=== PATIENT | male | born 1980 | race Caucasian/White ===

== ENCOUNTER 2022-12-29 12:17 | Outpatient (OUT) | payer OTHER, SELFPAY ==
--- NOTE | 2022-12-29 12:25 | MR_ITS ---
[facility] [id number] Patient Name: EDUARDO PHAM MRN: [id number] date: 1980 Sex: M Assigned Patient Location: MRI Current Patient Location: MRI Accession/Order Number: [id number] Exam Date: 12/29/2022 12:45 Report Date: 12/29/2022 13:50 At the request of: GLENNA MCCALL Procedure: MR shoulder LT wo con MR shoulder LT wo con, 12/29/2022 12:45 PM EDT INDICATION: Injury Of The Left Rotator Cuff S46.002D COMPARISON: There is no appropriate prior study for comparison. TECHNIQUE: Multiplanar and multisequential MR images of the left shoulder were obtained without contrast. FINDINGS: There are no significant hypertrophic degenerative changes of AC joint. There is no os acromiale. No Hill-Sachs is noted. No acute fracture or dislocation is noted. The quadrilateral space and supraspinous notch are unremarkable. The T2 prolongation within the insertional portions of supraspinatus may suggest tendinosis. 2 mm partial thickness partial width articular surface tear of supraspinatus is noted. The long head of biceps and infraspinatus and teres minor and subscapularis are unremarkable. No fatty muscle atrophy is noted. The labrum shows show mild degenerative changes superior posteriorly. There is trace intra articular joint effusion. Mild subacromial subdeltoid bursitis is noted. MR/MR shoulder LT wo con IMPRESSION: Low-grade partial articular surface tear of supraspinatus with mild insertional tendinosis. Mild subacromial subdeltoid bursitis. Electronically authenticated by: MELLISSA STORY Date: 12/29/2022 13:50
== END 2022-12-29 12:18 | disposition home or self-care (01) ==
LOC: MRI 12:19
PROVIDERS: PCP Family Medicine; Visit Provider Family Medicine
DX: S46.002D Unspecified injury of muscle(s) and tendon(s) of the rotator cuff of left shoulder, subsequent encounter (principal); M75.102 Unspecified rotator cuff tear or rupture of left shoulder, not specified as traumatic
CPT/HCPCS: 73221

== ENCOUNTER 2023-01-11 13:47 | Outpatient (RCR) | payer OTHER, SELFPAY | END 2023-02-28 07:47 | disposition home or self-care (01) | LOC: PT 13:47 | PROVIDERS: PCP Family Medicine; Visit Provider Orthopaedic Surgery | DX: M75.112 Incomplete rotator cuff tear or rupture of left shoulder, not specified as traumatic (principal) | CPT/HCPCS: 97110; 97161 ==

== ENCOUNTER 2023-03-01 09:52 | Outpatient (RCR) | payer OTHER, SELFPAY | END 2023-04-01 16:54 | disposition home or self-care (01) | LOC: PT 09:52 | PROVIDERS: PCP Family Medicine; Visit Provider Orthopaedic Surgery | DX: M75.112 Incomplete rotator cuff tear or rupture of left shoulder, not specified as traumatic (principal) | CPT/HCPCS: 97110 ==

== ENCOUNTER 2024-08-03 15:11 | Outpatient (OUT) | payer OTHER, SELFPAY ==
--- OUTSIDE RECORDS SUMMARY | 2024-08-02 15:20 | XMS_ITS | Encounter Summary ---
Author Organization [facility] Address [address] [place] [address] Care Team Providers Care Contact Worker Lithography Name Role Phone Miguel Angel Hernandez MD Primary Care Provider Reason for Visit * Reason Comments Back Pain Encounter Details Date Type Department Care Team (Late st Contact Info) Description 08/02/2024 3:20 PM EDT [facility] [address] [place] [address] Bertha Pappas, ANIMAL CARE WORKER [address] [place] [address] Cervical spondylosis (Primary Dx); Tobacco dependence Social History Tobacco Use Types Packs/Day Years Used Date Smoking Tobacco: Every Day Cigarettes 1 27.1 Started: 06/18/1997 Smokeless Tobacco: Never Alcohol Use Standard Drinks/Week Comments Yes 1 (1 standard drink = 0.6 oz pur e alcohol) Sex and Gender Information Value Date Recorded Sex Assigned at Not on file Legal Sex Male 8:23 PM EDT Gender Identity Not on file Sexual Orientation Not on file documented as of this encounter Last Filed Vital Signs Vital Sign Reading Time Taken Comments Blood Pressure 102/60 08/02/2024 3:16 PM EDT Pulse 61 08/02/2024 3:16 PM EDT Temperature 36.9 C (98.4 F) 08/02/2024 3:16 PM EDT Respiratory Rate 16 08/02/2024 3:16 PM EDT Oxygen Saturation 96% 08/02/2024 3:16 PM EDT Inhaled Oxygen Concentration - - Weight 62.1 kg (136 lb 12.8 oz) 08/02/2024 3:16 PM EDT Height - - Body Mass Index 20.8 01/05/2023 1:50 PM EST documented in this encounter Patient Instructions * Patient Instructions* Bertha Pappas NP - 08/02/2024 3:20 PM EDT Try Naproxen (anti inflammatory) twice a day with food Tizanidine (muscle relaxer) at bedtime for sleep-may make drowsy Stretching exercises If not better in 3 weeks call off and we will order PT Check xray documented in this encounter Progress Notes * Bertha Pappas NP - 08/02/2024 3:44 PM EDTAssociated Problem(s): Cervical spondylosis NSAID, MR, stretching exercises Ice Call office in 2-3 weeks if not better * Bertha Pappas NP - 08/02/2024 3:44 PM EDTAssociated Problem(s): Tobacco dependence The patient has been advised of the risks of continued smoking: stroke, [place], all forms of cancer, lung disease, and . Options for quitting smoking include: cold turkey, hypnosis, acupuncture, nicotine replacement meds(gum, lozenges, and patches), Buproprion, and Varenicline. At this time pt is encouraged to evaluate their goals for wanting to quit smoking, and reach out toprovider when ready to start this process * DENNYS TANNER - 08/02/2024 3:20 PM EDT Back and neck pain started a couples ago pt can not recall anything or an event happening that he can recall. Pt has taken otc IBU however does not help pt has tried thc pain cream from the dispensaries - it helped at times but states not really Pt states there is no past hx or trauma to the neck or the back Pt ran out of refills of the baclofin but also states it didn't really do anything either * Berthaleno Pappas, ANIMAL CARE WORKER - 08/02/2024 3:20 PM EDT Images from the original note were not included. Frnac Servin is a 44 y.o. male presents with chief complaint of Back Pain HPI: Cervical and upper thoracic pain as well as muscle spasm Sxs for a few months, dull pain all the time, occ sharp pain. 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, sits in front of computer Occ BRITT, no blurry/double vision, no Nt or weakness in arms, LHD Some stiffness to lower lumbar Tried: heat, ice, muscle rubs, and balcofen MR no help either Worse: not really , possibly posture Better: nothing No rashes, no joint pain and swelling Imaging; does not think so SUBJECTIVE: MEDICATIONS: Current Outpatient Medications Medication Instructions Baclofen 10 MG pack valACYclovir (VALTREX) 500 mg, Daily RT ALLERGIES: No Known Allergies REVIEW OF SYMPTOMS: Review of Systems Constitutional: Negative for activity change, appetite change and unexpected weight change. HENT: Negative for ear pain, nosebleeds, sneezing, trouble swallowing and voice change. Eyes: Negative for pain, discharge and visual disturbance. Respiratory: Negative for apnea, chest tightness and wheezing. Cardiovascular: Negative for leg swelling. Gastrointestinal: Negative for abdominal distention, blood in stool, constipation and diarrhea. Genitourinary: Negative for decreased urine volume, difficulty urinating, dysuria and hematuria. Musculoskeletal: Positive for back pain and neck pain. Skin: Negative for color change. Neurological: Negative for dizziness, tremors and seizures. Psychiatric/Behavioral: Negative for agitation, decreased concentration, hallucinations, self-injury and suicidal ideas. The patient is not nervous/anxious. Hematological: Negative for adenopathy. Does not bruise/bleed easily. Endocrine: Negative for cold intolerance, heat intolerance, polydipsia and polyuria. Allergic/Immunologic: Negative for environmental allergies and food allergies. PAST MEDICAL HISTORY Past Medical History: Diagnosis Date Rotator cuff syndrome August 2022 No past surgical history on file. family history includes Diabetes in his father. OBJECTIVE: Visit Vitals BP 102/60 (BP Location: Left arm, Patient Position: Sitting, BP Cuff Size: Adult long) Pulse 61 Temp 98.4 ??F (Temporal) Resp 16 Wt 136 lb 12.8 oz SpO2 96% BMI 20.80 kg/m?? Smoking Status Every Day BSA 1.73 m?? Physical Exam Vitals and nursing note reviewed. Constitutional: Appearance: Normal appearance. He is not ill-appearing. HENT: Head: Normocephalic. Right Ear: Tympanic membrane, ear canal and external ear normal. Left Ear: Tympanic membrane, ear canal and external ear normal. Nose: Nose normal. No congestion or rhinorrhea. Mouth/Throat: Mouth: Mucous membranes are moist. Pharynx: Oropharynx is clear. Eyes: Extraocular Movements: Extraocular movements intact. Conjunctiva/sclera: Conjunctivae normal. Neck: Vascular: No carotid bruit. Cardiovascular: Rate and Rhythm: Normal rate and regular rhythm. Pulses: Normal pulses. Heart sounds: Normal heart sounds. Pulmonary: Effort: Pulmonary effort is normal. Breath sounds: Normal breath sounds. No wheezing or rhonchi. Abdominal: General: Bowel sounds are normal. There is no distension. Palpations: Abdomen is soft. Tenderness: There is no abdominal tenderness. There is no guarding. Musculoskeletal: Cervical back: Neck supple. Right lower leg: No edema. Left lower leg: No edema. Comments: Neck: flex near full, hyperextension and rotation bilat limited end range R worse then left MMT 5/5 bilat UE/LE, DTR's 2+ bilat UE/LE Bilat shoulders full ROM +tightness trap bilat Lymphadenopathy: Cervical: No cervical adenopathy. Skin: General: Skin is warm and dry. Capillary Refill: Capillary refill takes 2 to 3 seconds. Neurological: General: No focal deficit present. Mental Status: He is alert. Psychiatric: Mood and Affect: Mood normal. Behavior: Behavior normal. Thought Content: Thought content normal. Judgment: Judgment normal. ASSESSMENT AND PLAN: No follow-ups on file. Problem List Items Addressed This Visit Cervical spondylosis NSAID, MR, stretching exercises Ice Call office in 2-3 weeks if not better Relevant Medications naproxen (Naprosyn) 500 MG tablet tiZANidine (Zanaflex) 4 MG tablet Other Relevant Orders XR cervical spine 2 or 3 views Tobacco dependence - Primary The patient has been advised of the risks of continued smoking: stroke, [place], all forms of cancer, lung disease, and . Options for quitting smoking include: cold turkey, hypnosis, acupuncture, nicotine replacement meds(gum, lozenges, and patches), Buproprion, and Varenicline. At this time pt is encouraged to evaluate their goals for wanting to quit smoking, and reach out toprovider when ready to start this process documented in this encounter Plan of Treatment Upcoming Encounters Date Type Department Care Team (Late st Contact Info) Description 09/27/2024 5:00 PM EDT [facility] [address] [place] [address] Bertha Pappas NP [address] [place] [address] Scheduled Orders Name Type Priority Associated Diagnoses Orde r Schedule XR cervical spine 2 or 3 views Imaging Routine Cervical spondylosis Expected: 08/02/2024, Expires: 08/02/2025 documented as of this encounter Visit Diagnoses Diagnosis Cervical spondylosis- Primary Cervical spondylosis without myelopathy Tobacco dependence Tobacco use disorder documented in this encounter Care Teams Contact Worker Lithography Relationship Specialty Start Date End Date Miguel Angel Hernandez MD [address] [place] [address] PCP - General Family Medicine 04/21/23 documented as of this encounter
--- OUTSIDE RECORDS SUMMARY | 2024-08-03 15:14 | XMS_ITS | Referral Summary ---
Author Organization [facility] Address [address] [place] [address] Care Team Providers Care County Historian Name Role Phone Miguel Angel Hernandez MD Primary Care Provider [phone] Allergies No known active allergies Medications Medication Sig Dispensed Refills Start Date End Date Status baclofen (Lioresal) 20 mg tablet Active valACYclovir (Valtrex) 500 mg tablet Take 500 mg by mouth in the morning. 05/08/2022 Active Active Problems No known active problems Social History Tobacco Use Types Packs/Day Years Used Date Smoking Tobacco: Every Day Cigarettes 1 27.1 Started: 06/29/1997 Smokeless Tobacco: Never Alcohol Use Standard Drinks/Week Comments Yes 2 (1 standard drink = 0.6 oz pur e alcohol) CT Safety & Environment Answer Date Rec orded Fear of Current or Ex-Partner Not on file Emotionally Abused Not on file 04/22/2023 Physically Abused Not on file 04/22/2023 Sexually Abused Not on file 04/22/2023 Physically or Sexually Abused Not on file Sex and Gender Information Value Date Recorded Sex Assigned at Not on file Gender Identity Not on file Sexual Orientation Not on file Last Filed Vital Signs Vital Sign Reading Time Taken Comments Blood Pressure - - Pulse - - Temperature - - Respiratory Rate - - Oxygen Saturation - - Inhaled Oxygen Concentration - - Weight 63.5 kg (140 lb) 06/23/2022 9:34 AM EDT Height 172.7 cm (5' 8 ) 06/23/2022 9:34 AM EDT Body Mass Index 21.29 06/23/2022 9:34 AM EDT Plan of Treatment Not on file Care Teams County Historian Relationship Specialty Start Date End Date Miguel Angel Hernandez MD [address] [place] [address] PCP - General 06/18/22
--- OUTSIDE RECORDS SUMMARY | 2024-08-03 15:14 | XMS_ITS | Encounter Summary ---
Author Organization [facility] Address [address] [place] [address] Care Team Providers Care Retail Maintenance Technician Name Role Phone Miguel Angel Hernandez MD Primary Care Provider [phone] Encounter Details Date Type Department Care Team (Late Contact Info) Description 08/02/[address] [facility] [address] [place] [address] Bertha Pappas NP [address] [place] [address] Social History Tobacco Use Types Packs/Day Years [...] on file documented as of this encounter Plan of Treatment Upcoming Encounters Date Type Department Care Team (Late Contact Info) Description 09/27/2024 5:00 PM EDT Office Visit [facility] [address] [place] [id number] Bertha Pappas NP [address] [place] [address] documented as of this encounter Visit Diagnoses Not on filedocumented in this encounter Care Teams Retail Maintenance Technician Relationship Specialty Start Date End Date Miguel Angel Hernandez MD [address] [place] [address] PCP - General Family Medicine 04/21/23 documented as of this encounter
--- OUTSIDE RECORDS SUMMARY | 2024-08-03 15:14 | XMS_ITS | Clinical Summary ---
Author Organization [facility] Address [address] [place] [address] Care Team Providers Care Coffee Roaster Name Role Phone Miguel Angel Hernandez MD Primary Care Provider [phone] Allergies No known active allergies Medications Medication [...] drink = 0.6 oz pur e alcohol) [place] Safety & Environment Answer Date Rec orded [...] 06/23/2022 9:34 AM EDT Plan of Treatment Health Maintenance Due Date Last Done Comments CT Colonography 1979 Colonoscopy 1979 Colorectal Cancer Screening 1980 FIT-DNA 1980 FIT 1980 FOBT 1980 Sigmoidoscopy 1980 Pneumococcal Vaccine: Pediat rics (0 to 5 Years) and At-Risk Patients (6 to 64 Years) (1 of 2 - PCV) 06/08/1985 Depression Screening 1991 Hepatitis B Vaccines (1 of 3 - 19+ 3-dose series) 06/08/1998 Adult Tetanus 06/08/2001 COVID-19 Vaccine ( - 2023-2 5 season) 2023 Influenza Vaccine (Season Ended) 2024 01/07/20 20 Zoster Vaccines (1 of 2) 06/08/2029 HIB Vaccines Aged Out No longer eligi ble based on patient's age to complete this topic HPV Vaccines Aged Out No longer eligi ble based on patient's age to complete this topic IPV Vaccines Aged Out No longer eligi ble based on patient's age to complete this topic Meningococcal B Vaccine Aged Out No l onger eligible based on patient's age to complete this topic Meningococcal Vaccine Aged Out No shaji william eligible based on patient's age to complete this topic Rotavirus Vaccines Aged Out No longer eligible based on patient's age to complete this topic Care Teams Coffee Roaster Relationship Specialty Start Date End Date Miguel Angel Hernandez MD [address] [place] [address] PCP - General 06/18/22
--- NOTE | 2024-08-03 15:29 | XR_ITS ---
[address] [address] Patient Name: EDUARDO PHAM MRN: [id number] date: 1980 Sex: M Assigned Patient Location: [facility] Current Patient Location: [facility] Accession/Order Number: [id number] Exam Date: 08/03/2024 15:49 Report Date: 08/03/2024 15:51 At the request of: ILYA BLUM NP Procedure: XR cervical spine 2-3V 3 viewscervical spine HISTORY: Acute posterior cervical spine pain COMPARISON: 04/20/2019 POSTOPERATIVE CHANGES: None BONY ALIGNMENT: Straightening HYPERMOBILITY::No bending imaging. LISTHESIS:None FRACTURE: None DISC DEGENERATION: Moderate C5-6 disc space narrowing with endplate spurring. Mild progression FACETS: Unremarkable FORAMEN: Unremarkable. DENS: Intact CRANIOCERVICAL JUNCTION: Unremarkable SOFT TISSUES: Unremarkable XR/XR cervical spine 2-3V IMPRESSION: Mild progression of moderate C5-6 spondylosis Impression dictated by: Sivakumar Owens M.D. 08/03/2024 3:51 PM Dictation Location: [facility] Electronically authenticated by: [id number] Date: 08/03/2024 15:51
== END 2024-08-03 15:12 | disposition home or self-care (01) ==
LOC: RAD 15:12
PROVIDERS: PCP Family Medicine; Visit Provider Nurse Practitioner
DX: M47.812 Spondylosis without myelopathy or radiculopathy, cervical region (principal)
CPT/HCPCS: 72040

== ENCOUNTER 2024-09-14 14:42 | Outpatient (RCR) | payer OTHER, SELFPAY | END 2024-10-10 10:37 | disposition home or self-care (01) | LOC: PT 14:42 | PROVIDERS: PCP Family Medicine; Visit Provider Nurse Practitioner | DX: M47.812 Spondylosis without myelopathy or radiculopathy, cervical region (principal) | CPT/HCPCS: 97014; 97110; 97140; 97161 ==

== ENCOUNTER 2024-10-14 10:20 | Outpatient (OUT) | payer OTHER, SELFPAY ==
--- OUTSIDE RECORDS SUMMARY | 2024-10-14 10:23 | XMS_ITS | CCD ---
Author Organization [facility] Care Team Providers Care Blade Aligner Name Role Phone DR MIGUEL ANGEL MCCALL Primary Care Unavailable STEFANY, DR MIGUEL ANGEL Rojas Consulting Unavailable STEFANY, DR MIGUEL ANGEL Rojas Attending Unavailable STEFANY, DR MIGUEL ANGEL Rojas Admitting Unavailable Ambrosio Cormier Consulting Unavailable STEFANY, DR MIGUEL ANGEL Rojas Primary Care Unavailable STEFANY, DR MIGUEL ANGEL Rojas Consulting Unavailable STEFANY, DR MIGUEL ANGEL Rojas Attending Unavailable STEFANY, DR MIGUEL ANGEL Rojas Admitting Unavailable REYES BOYKIN Attending Unavailable Miguel Angel Mccall MD Primary Care Provider [phone] BERTHA PAPPAS Attending Unavailable BERTHA PAPPAS Attending Unavailable Medications Current Medications Medication Drug Class(es) Dates Sig (Normalized) Sig (Original) naproxen 500 mg oral tablet (9 sources) Nonsteroidal Anti-inflammatory Drug Start: 08-02-2024 End: 09-29-2024 take 1 tablet by mouth in the morning naproxen (Naprosyn) 500 MG tablet Indications: Cervical spondylosis Take 1 tablet (500 mg) by mouth in the morning and 1 tablet (500 mg) in the evening. Take with meals. 60 tablet 08/30/2024 09/29/2024 Active valACYclovir 500 mg oral tablet (9 sources) Herpesvirus Nucleoside Analog DNA Polymerase Inhibitor, Herpes Simplex Virus Nucleoside Analog DNA Polymerase Inhibitor, Herpes Zoster Virus Nucleoside Analog DNA Polymerase Inhibitor Start: 06-22-2012 take 1 tablet by mouth in the morning valACYclovir (Valtrex) 500 MG tablet Take 500 mg by mouth in the morning. 06/22/2012 Active Completed/Discontinued Medications Medication Drug Class(es) Dates Sig (Normalized) Sig (Original) Baclofen 10 MG pack (3 sources) Start: 01-06-2019 End: 08-02-2024 Baclofen 10 MG pack 01/06/2019 08/02/2024 Discontinued (Therapy completed) Start: 01-06-2019 Baclofen 10 MG pack 01/06/2019 Active tiZANidine 4 mg oral tablet (8 sources) Central alpha-2 Adrenergic Agonist Start: 08-02-2024 End: 09-27-2024 tiZANidine (Zanaflex) 4 MG tablet Indications: Cervical spondylosis Take 1 tablet (4 mg) by mouth as needed at bedtime for muscle spasms for up to 20 days 20 tablet 08/02/2024 09/27/2024 Discontinued (Therapy completed) Problems Active Problems Problem Classification Problem Date Documented Da te Episodic/Chronic Nutritional deficiencies (9 sources) Vitamin D deficiency; Translations: [Vitamin D deficiency, unspecified] Onset: 08-02-2024 08-02-2024 Chronic Other connective tissue disease (6 sources) Pain in left hand; Translations: [PAIN IN LEFT HAND] Onset: 05-05-2022 Episodic Other screening for suspected conditions (not mental disorders or infectious disease) (5 sources) Patient encounter status; Translations: [Encounter for screening for malignant neoplasm of colon] Onset: 09-27-2024 09-27-2024 Episodic Spondylosis; intervertebral disc disorders; other back problems (16 sources) Cervical spondylosis; Translations: [Spondylosis without myelopathy or radiculopathy, cervical region] Onset: 08-02-2024 08-02-2024 Chronic Substance-related disorders (13 sources) Tobacco dependence syndrome; Translations: [Nicotine dependence, unspecified, uncomplicated] Onset: 08-02-2024 08-02-2024 Chronic Unclassified (3 sources) CONTACT W/AND (SUSP) EXPOS COVID-19; Translations: [CONTACT W/AND (SUSP) EXPOS COVID-19] Onset: 10-23-2021 Viral infection (9 sources) Herpes simplex; 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, unspecified] Onset: 08-02-2024 08-02-2024 Chronic Past or Other Problems Problem Classification Problem Date Documented Da te Episodic/Chronic Unclassified (1 source) CONTACT W/AND (SUSP) EXPOS COVID-19; Translations: [CONTACT W/AND (SUSP) EXPOS COVID-19] Onset: 10-21-2021 Results Test Name Value Interpretation Reference Range Facil ity XR CERVICAL SPINE 2-3Von [address] [address] XRay Report Signed Patient: EDUARDO PHAM III MR#: [id number] : 1980 Acct:[id number] Age/Sex: 44 / M ADM Date: 08/03/24 Loc: [facility] Attending Dr: Bertha Pappas NP Ordering Physician: Bertha Pappas NP Date of Service: 08/03/24 Procedure(s): XR cervical spine 2-3V Accession Number(s): [id number] cc: Bertha Pappas SENIOR CYTOTECHNOLOGIST; Miguel Angel Mccall M.D. The [address] [address] Patient Name: EDUARDO PHAM MRN: [facility]:[id number] date: 1980 Sex: M Assigned Patient Location: [facility] Current Patient Location: [facility] Accession/Order Number: [id number] Exam Date: 08/03/2024 15:49 Report Date: 08/03/2024 15:51 At the request of: BERTHA PAPPAS NP Procedure: XR cervical spine 2-3V 3 viewscervical spine HISTORY: Acute posterior cervical spine pain COMPARISON: 04/20/2019 POSTOPERATIVE CHANGES: None BONY ALIGNMENT: Straightening HYPERMOBILITY::No bending imaging. LISTHESIS:None FRACTURE: None DISC DEGENERATION: Moderate C5-6 disc space narrowing with endplate spurring. Mild progression FACETS: Unremarkable FORAMEN: Unremarkable. DENS: Intact CRANIOCERVICAL JUNCTION: Unremarkable SOFT TISSUES: Unremarkable XR/XR cervical spine 2-3V IMPRESSION: Mild progression of moderate C5-6 spondylosis Impression dictated by: Sivakumar Owens M.D. 08/03/2024 3:51 PM Dictation Location: [place] [address] Electronically authenticated by: [id number] Y Date: 08/03/2024 15:51 Dictated By: Sivakumar Owens D.O. Signed By: 08/03/24 1553 DD/ 155 TD/TT: Legal Researcher: [facility] Radiology, Radiologist, MD - 08/03/[address] [address] XRay Report Signed Patient: EDUARDO PHAM III MR#: [id number] : 1980 Acct:[id number] Age/Sex: 44 / M ADM Date: 08/03/24 Loc: [facility] Attending Dr: Bretha Pappas NP Ordering Physician: Bertha Pappas NP Date of Service: 08/03/24 Procedure(s): XR cervical spine 2-3V Accession Number(s): [id number] cc: Bertha Pappas SENIOR CYTOTECHNOLOGIST; Miguel Angel Mccall M.D. The [address] [address] Patient Name: EDUARDO PHAM MRN: [id number] date: 1980 Sex: M Assigned Patient Location: [facility] Current Patient Location: [facility] Accession/Order Number: [id number] Exam Date: 08/03/2024 15:49 Report Date: 08/03/2024 15:51 At the request of: BERTHA PAPPAS NP Procedure: XR cervical spine 2-3V 3 viewscervical spine HISTORY: Acute posterior cervical spine pain COMPARISON: 04/20/2019 POSTOPERATIVE CHANGES: None BONY ALIGNMENT: Straightening HYPERMOBILITY::No bending imaging. LISTHESIS:None FRACTURE: None DISC DEGENERATION: Moderate C5-6 disc space narrowing with endplate spurring. Mild progression FACETS: Unremarkable FORAMEN: Unremarkable. DENS: Intact CRANIOCERVICAL JUNCTION: Unremarkable SOFT TISSUES: Unremarkable XR/XR cervical spine 2-3V IMPRESSION: Mild progression of moderate C5-6 spondylosis Impression dictated by: Sivakumar Owens M.D. 08/03/2024 3:51 PM Dictation Location: [place] [address] Electronically authenticated by: [id number] Y Date: 08/03/2024 15:51 Dictated By: Sivakumar Owens D.O. Signed By: 08/03/24 155 DD/ 50 TD/TT: Legal Researcher: [facility] Radiology Study observation (narrative) [facility] XR CERVICAL SPINE 2-3VOrdere d By: Radiologist Radiology on 08-03-2024 [employer] Work Phone: Office Visiton 06-23-2022 Follow-up visit [id number] Eduardo Pham 1980 M Date Provider Department Center 06/23/2022 REYES TRAORE MP ORTHO MPORTHO No family history on file Level of Service:40938 ME OFFICE/OUTPATIENT NEW LOW MDM 30-44 MINUTES Reason for Visit and Comments: New Patient [632] Normal [facility] MRI HAND LT WO CONon 023 MRI HAND LT WO CON EXAM: MRI HAND LT WO CON HISTORY: Pain of left hand COMPARISON: None. TECHNIQUE: Multiplanar, multi sequential MRI sequences were performed head FINDINGS: This study is degraded secondary to [id number] and isocenter of the study. Tenosynovitis of the fourth flexor tendons (axial 35). The proximal aspect of these findings is not imaged on the axial projections. On sagittal image 14, this appears to extend proximal approximately 3 cm. Distally extends to the metacarpal neck. Evaluation of the flexor tendons for edema is nondiagnostic. No tendon tear. The remainder of the visualized flexor tendons and the extensor exhibit no thickening, tear, edema or tenosynovial collections. No abnormal bursal fluid collections. No visualized fracture, dislocation, subluxation, osseous lesion or bone marrow edema. No joint effusion, synovitis or capsular irregularity. The collateral ligaments are unremarkable. The superficial subcutaneous soft tissues are free of edema, hematoma, mass or cyst. No muscle edema, hematoma, atrophy or fatty infiltration. IMPRESSION: Tenosynovitis of the fourth flexor tendons. Electronically authenticated by: AMBROSIO CORMIER Date: 2022-05-05 16:[address] [facility] Covid-19 PCR (CVDTBH)on 09-30 SARS-CoV-2 (COVID-19) RNA KARENA+probe Ql (Unsp spec) Not detected Normal NOT DETECTED The [facility] Comment on above: Result Comment: This test is not yet approved or cleared by the [place] FDA. When there are no FDA-approved or cleared tests available, and other criteria are met, FDA can make tests available under an emergency access mechanism called an Emergency Use Authorization (EUA). The EUA for this test is supported by the [employer] Operator of Health and Human Service's (HHS's) declaration that circumstances exist to justify the emergency use of in vitro diagnostics for the detection and/or diagnosis of the virus that causes COVID-19. This EUA will remain in effect (meaning this test can be used) for the duration of the COVID-19 declaration justifying emergency of IVDs, unless it is terminated or revoked by FDA (after which the test may no longer be used). When diagnostic testing is negative, the possibility of a false negative should be considered in the context of a patient's recent exposures and the presence of clinical signs and symptoms consistent with SARS-CoV-2. Performed By: #### [facility] #### [facility] [address] [place] [address] Dr. Kathryn Garcia Vital Signs Date Time Vital Sign Value Performing Clinician Shelia fatima 09-27-2024 17:02-0400 Body mass index (BMI) [Ratio] 21.04 kg/m2 Bertha Aichbillyz SENIOR CYTOTECHNOLOGIST Work Phone: [facility] 09-27-2024 17:02-0400 Body temperature 98.49 [degF] Bertha Aichholz SENIOR CYTOTECHNOLOGIST Work Phone: [facility] 09-27-2024 17:02-0400 Body weight 62.78 kg Bertha Aichholz SENIOR CYTOTECHNOLOGIST Work Phone: [facility] 09-27-2024 17:02-0400 Diastolic blood pressure 68 mm[Hg] Bertha Aichholz SENIOR CYTOTECHNOLOGIST Work Phone: [facility] 09-27-2024 17:02-0400 Heart rate 63 /min Bertha Aichholz SENIOR CYTOTECHNOLOGIST Work Phone: [facility] 09-27-2024 17:02-0400 Respiratory rate 18 /min Bertha Aichholz SENIOR CYTOTECHNOLOGIST Work Phone: [facility] 09-27-2024 17:02-0400 SaO2% (BldA) [Mass fraction] 98 % Bertha Aichholz SENIOR CYTOTECHNOLOGIST Work Phone: [facility] 09-27-2024 17:02-0400 Systolic blood pressure 104 mm[Hg] Bertha Aichholz SENIOR CYTOTECHNOLOGIST Work Phone: [facility] 08-02-2024 15:16-0400 Body mass index (BMI) [Ratio] 20.8 kg/m2 Bertha Jasebillyz SENIOR CYTOTECHNOLOGIST Work Phone: [facility] 08-02-2024 15:16-0400 Body temperature 98.4 [degF] Bertha Keyshawnz SENIOR CYTOTECHNOLOGIST Work Phone: [facility] 08-02-2024 15:16-0400 Body weight 62.05 kg Bertha Kayliesheebaz SENIOR CYTOTECHNOLOGIST Work Phone: [facility] 08-02-2024 15:16-0400 Diastolic blood pressure 60 mm[Hg] Bertha Keyshawnz SENIOR CYTOTECHNOLOGIST Work Phone: [facility] 08-02-2024 15:16-0400 Heart rate 61 /min Bertha Keyshawnz SENIOR CYTOTECHNOLOGIST Work Phone: [facility] 08-02-2024 15:16-0400 Respiratory rate 16 /min Bertha Jasebillyz SENIOR CYTOTECHNOLOGIST Work Phone: [facility] 08-02-2024 15:16-0400 SaO2% (BldA) [Mass fraction] 96 % Bertha Keyshawnz SENIOR CYTOTECHNOLOGIST Work Phone: [facility] 08-02-2024 15:16-0400 Systolic blood pressure 102 mm[Hg] Bertha Mian SENIOR CYTOTECHNOLOGIST Work Phone: [facility] Healthcare Encounters Encounter Date Encounter Type Care Provider Facility Start: 09-27-2024 End: 09-27-2024 Periodic preventive med est patient 40-64yrs Bertha Mian SENIOR CYTOTECHNOLOGIST Work Phone: [facility] Comment on above: Encounter for adult wellness visit (Primary Dx); Tobacco dependence; Colon cancer screening; Cervical spondylosis Start: 09-27-2024 End: 09-27-2024 ambulatory BERTHA PAPPAS Not Available Start: 09-27-2024 End: 09-27-2024 Bamboo flowsheet Bertha Pappas SENIOR CYTOTECHNOLOGIST Work Phone: [facility] Start: 09-27-2024 End: 09-27-2024 Bamboo flowsheet Bertha Pappas SENIOR CYTOTECHNOLOGIST Work Phone: [facility] Start: 09-27-2024 End: 09-27-2024 Patient encounter status Bertha Pappas SENIOR CYTOTECHNOLOGIST Work Phone: [facility] Start: 09-05-2024 End: 09-05-2024 Orders Only Bertha Lagunabillybree SENIOR CYTOTECHNOLOGIST Work Phone: [facility] Comment on above: Cervical spondylosis (Primary Dx) Start: 08-29-2024 End: 08-30-2024 Refill Bertha Lagunameghana SENIOR CYTOTECHNOLOGIST Work Phone: [facility] Comment on above: Cervical spondylosis Start: 08-03-2024 End: 08-03-2024 [facility] Result Encounter Bertha Mahajanz SENIOR CYTOTECHNOLOGIST Work Phone: [facility] Unsolicited Start: 08-03-2024 End: 08-03-2024 [facility] Result Encounter Bertha Keyshawnz SENIOR CYTOTECHNOLOGIST Work Phone: [facility] Unsolicited Start: 08-02-2024 End: 08-02-2024 Office outpatient visit 15 minutes Bertha Lagunabillyz SENIOR CYTOTECHNOLOGIST Work Phone: [facility] Comment on above: Cervical spondylosis (Primary Dx); Tobacco dependence Start: 08-02-2024 End: 08-02-2024 ambulatory BERTHA MIAN Not Available Start: 08-02-2024 End: 08-02-2024 Bamboo flowsheet Bertha Jaseholz SENIOR CYTOTECHNOLOGIST Work Phone: [facility] Start: 08-02-2024 End: 08-02-2024 Bamboo flowsheet Bertha Aichholz SENIOR CYTOTECHNOLOGIST Work Phone: [facility] Start: 06-23-2022 End: 06-23-2022 ambulatory [facility] Start: 05-05-2022 End: 05-06-[address] MIGUEL ANGEL MCCALL Facility:[facility] Start: 10-21-2021 End: 10-21-[address] MIGUEL ANGEL MCCALL Facility:[facility] Procedures Date Procedure Procedure Detail Performing Clinician Start: 08-03-2024 XR CERVICAL SPINE 2-3V Bertha Pappas NP Work Phone: Plan of Treatment Date Care Activity Detail Author Start: 11-29-2024 End: 11-29-2024 Patient encounter procedure 11/29/2024 3:40 PM EDT Office Visit [facility] [address] [place] [address] Bertha Pappas, SENIOR CYTOTECHNOLOGIST [address] [place] [address] [facility] Start: 10-30-2024 Influenza vaccination [facility] Start: 09-27-2024 End: 09-27-2024 Patient encounter procedure 09/27/2024 5:00 PM EDT Office Visit [facility] [address] [place] [address] Bertha Pappas, SENIOR CYTOTECHNOLOGIST [address] [place] [phone] [facility] Start: 09-27-2024 End: 09-27-2025 CBC W Auto Differential panel - Blood CBC and differential Lab Routine Encounter for adult wellness visit Expected: 09/27/2024 (Approximate), Expires: 09/27/2025 [facility] Work Phone: Comment on above: Expected: 09/27/2024 (Approximate), Expires: 09/27/2025 Start: 09-27-2024 End: 09-27-2025 Comprehensive metabolic 2000 panel - Serum or Plasma Comprehensive metabolic panel Lab Routine Encounter for adult wellness visit Expected: 09/27/2024 (Approximate), Expires: 09/27/2025 [facility] Comment on above: Expected: 09/27/2024 (Approximate), Expires: 09/27/2025 Start: 09-27-2024 End: 09-27-2025 Lipid 1996 panel - Serum or Plasma Lipid panel Lab Routine Encounter for adult wellness visit Expected: 09/27/2024 (Approximate), Expires: 09/27/2025 [facility] Comment on above: Expected: 09/27/2024 (Approximate), Expires: 09/27/2025 Start: 09-27-2024 End: 09-27-2025 Noninvasive colorectal cancer DNA and occult blood screening [Presence] in Stool Cologuard colon cancer screening Lab Routine Colon cancer screening Expected: 09/27/2024 (Approximate), Expires: 09/27/2025 [facility] Comment on above: Expected: 09/27/2024 (Approximate), Expires: 09/27/2025 Start: 09-27-2024 End: 09-27-2025 Thyrotropin [Units/volume] in Serum or Plasma TSH Lab Routine Encounter for adult wellness visit Expected: 09/27/2024 (Approximate), Expires: 09/27/2025 [facility] Comment on above: Expected: 09/27/2024 (Approximate), Expires: 09/27/2025 Start: 09-27-2024 End: 09-27-2025 Urinalysis complete panel - Urine Urinalysis with reflex microscopic (clean catch) Lab Routine Encounter for adult wellness visit Expected: 09/27/2024 (Approximate), Expires: 09/27/2025 [facility] Comment on above: Expected: 09/27/2024 (Approximate), Expires: 09/27/2025 Start: 08-02-2024 End: 08-02-2024 Patient encounter procedure 08/02/2024 3:20 PM EDT Office Visit [facility] [address] [place] [address] Bertha Pappas NP [address] [place] [address] Arrived [facility] Comment on above: Arrived Start: 08-02-2024 End: 08-02-2025 XR Cervical spine 2 or 3 Views XR cervical spine 2 or 3 views Imaging Routine Cervical spondylosis Expected: 08/02/2024, Expires: 08/02/2025 [facility] Work Phone: Comment on above: Expected: 08/02/2024 , Expires: 08/02/2025 Start: 1980 Screening for malign ant neoplasm of colon [facility] Immunizations Immunization Date Immunization Notes Care Provider Fa ana lilia 01-07-2020 influenza virus vacc ine, unspecified formulation Bertha Pappas SENIOR CYTOTECHNOLOGIST Work Phone: [facility] Payers Date Payer Category Payer Private Health Insurance [facility] [id number] 1980 Unknown [id number] 1980 Unknown [id number] 1980 Unknown [id number] 1980 Unknown [id number] 1960 Private Health Insurance [id number] Social History Date Type Detail Facility Start: 06-18-1997 Tobacco smoking stat [facility] Smokes tobacco daily [facility] Start: 06-18-1997 History of tobacco use Cigarette Smo ker [facility] Start: 01-05-2023 End: 08-02-2024 Cigarettes smoked current (pack per day) - Reported 1 [facility] Start: 11-07-2023 Tobacco use and exposure Smoke less tobacco non-user [facility] Start: 02-23-2023 End: 09-27-2024 Alcoholic beverage intake Current drinker of alcohol (finding) [facility] Start: 02-23-2023 End: 08-02-2024 Tobacco use panel [facility] Start: 1980 Sex assigned at Not on file [facility] History of Present illness Narrative 09-27-2024 Bertha Pappas NP - 09/27/2024 5:28 PM [facility] - 09/27/2024 5:00 PM Rufino Pappas NP - 09/27/2024 5:00 PM Rufino Pappas NP - 09/27/2024 7:17 AM EDT Note Date & Type Note Facility 09-27-2024 History of Presen t illness Narrative Associated Problem(s): Cervical spondylosis Cont PT Reviewed XR order as well Pt states the muscle relaxer were not helping much Images from the original note were not included. Eduardo Pham is a 44 y.o. male presents with chief complaint of Annual Exam HPI: Diet: meat and potatoes, dairy Activity: no Mental Health Concerns: no Falls in the last year:no Any hearing problems: no Any Vision problems: glasses, last eye exam a year ago Any Hospitalizations in the last year: no Specialist: PT Concerns: Is undergoing PT for now spine, mr not a lot of help SUBJECTIVE: MEDICATIONS: Current Outpatient Medications Medication Instructions naproxen (NAPROSYN) 500 mg, Oral, 2 times daily with meals valACYclovir (VALTREX) 500 mg, Daily RT ALLERGIES: [...] dysuria and hematuria. Musculoskeletal: Positive for back pain. Skin: Negative for color change. Neurological: [...] Diagnosis Date Rotator cuff syndrome August 2022 History reviewed. No pertinent surgical history. family history includes Diabetes in his father. OBJECTIVE: Visit Vitals BP 104/68 (BP Location: Left arm, Patient Position: Sitting, BP Cuff Size: Adult long) Pulse 63 Temp 98.5 F (Temporal) Resp 18 Wt 138 lb 6.4 oz SpO2 98% BMI 21.04 kg/m Smoking Status Every Day BSA 1.74 m Physical Exam Vitals and nursing note reviewed. Constitutional: Appearance: Normal appearance. HENT: Head: Normocephalic. Right Ear: External ear normal. Left Ear: External ear normal. Nose: Nose normal. Mouth/Throat: Mouth: Mucous membranes are moist. Pharynx: Oropharynx is clear. Eyes: Extraocular Movements: Extraocular movements intact. Conjunctiva/sclera: Conjunctivae normal. Neck: Vascular: No carotid bruit. Cardiovascular: Rate and Rhythm: Normal rate and regular rhythm. Pulses: Normal pulses. Heart sounds: Normal heart sounds. Pulmonary: Effort: Pulmonary effort is normal. Breath sounds: Normal breath sounds. Abdominal: General: Bowel sounds are normal. Palpations: Abdomen is soft. Musculoskeletal: Cervical back: Neck supple. Right lower leg: No edema. Left lower leg: No edema. Comments: Decreased ROM cervical spine, tightness to trap region Skin: General: Skin is warm and dry. Capillary Refill: Capillary refill takes 2 to 3 seconds. Neurological: General: No focal deficit present. Mental Status: He is alert. Psychiatric: Mood and Affect: Mood normal. Behavior: Behavior normal. Thought Content: Thought content normal. Judgment: Judgment normal. ASSESSMENT AND PLAN: Follow up in about 2 months (around 11/28/2024) for Recheck. Problem List Items Addressed This Visit Cervical spondylosis Cont PT Reviewed XR order as well Tobacco dependence The patient has been advised of the risks of continued smoking: stroke, SC, all forms of cancer, lung disease, and . Options for quitting smoking include: cold turkey, hypnosis, acupuncture, nicotine replacement meds (gum, lozenges, and patches), Buproprion, and Varenicline. At this time pt is encouraged to evaluate their goals for wanting to quit smoking, and reach out to provider when ready to start this process Encounter for adult wellness visit - Primary Reviewed Ht/Wt/BMI Recommend eye exam yearly Recommend dental exams twice a year Balance work/leisure activities Exercises is recommended most days of the week (appropriate as chronic conditions allow) Follow up yearly and prn Relevant Orders CBC and differential Comprehensive metabolic panel Lipid panel Urinalysis with reflex microscopic (clean catch) TSH Colon cancer screening Colon cancer screening options were discussed with patient, as well as why colon cancer screening is indicated. Options are Colonoscopy: direct visualization, every 10 years (unless indicated more frequently), risks and benefits were discussed Cologuard: every 3 years, risks and benefits were discussed , contraindications were discussed (family hx of colon cancer, colon polyps) Patient has elected to: cologaurd Relevant Orders Cologuard colon cancer screening Associated Problem(s): Colon cancer screening Colon cancer screening options were discussed with patient, as well as why colon cancer screening is indicated. Options are Colonoscopy: direct visualization, every 10 years (unless indicated more frequently), risks and benefits were discussed Cologuard: every 3 years, risks and benefits were discussed , contraindications were discussed (family hx of colon cancer, colon polyps) Patient has elected to: cologaurd Associated Problem(s): Encounter for adult wellness visit Reviewed Ht/Wt/BMI Recommend eye exam yearly Recommend dental exams twice a year Balance work/leisure activities Exercises is recommended most days of the week (appropriate as chronic conditions allow) Follow up yearly and prn Associated Problem(s): Tobacco dependence The patient has been advised of the risks of continued smoking: stroke, SC, all forms of cancer, lung disease, and . Options for quitting smoking include: cold turkey, hypnosis, acupuncture, nicotine replacement meds (gum, lozenges, and patches), Buproprion, and Varenicline. At this time pt is encouraged to evaluate their goals for wanting to quit smoking, and reach out to provider when ready to start this process documented in this encounter [facility] Instructions 09-27-2024 Patient Instructions Note Date & Type Note Facility 09-27-2024 Instructions Bertha Pappas NP - 09/27/2024 5:00 PM EDT Recommend eye exam yearly Recommend dental exams twice a year Balance work/leisure activities Exercises is recommended most days of the week (appropriate as chronic conditions allow) Follow up yearly and prn documented in this encounter [facility] History of Present illness Narrative 08-02-2024 Bertha Pappas NP - 08/02/2024 3:44 PM EDGina Pappas NP - 08/02/2024 3:44 PM [facility]IAN[facility]ENNYS - 08/02/2024 3:20 PM EDGina Pappas NP - 08/02/2024 3:20 PM EDT Note Date & Type Note Facility 08-02-2024 History of Presen t illness Narrative Associated Problem(s): Cervical spondylosis NSAID, MR, stretching exercises Ice Call office in 2-3 weeks if not better Associated Problem(s): Tobacco dependence The patient has been advised of the risks of continued smoking: stroke, SC, all forms of cancer, lung disease, and . Options for quitting smoking include: cold turkey, hypnosis, acupuncture, nicotine replacement meds (gum, lozenges, and patches), Buproprion, and Varenicline. At this time pt is encouraged to evaluate their goals for wanting to quit smoking, and reach out to provider when ready to start this process Back and neck pain started a couples [...] states it didn't really do anything either Images from the original note were not included. Eduardo Pham is a 44 y.o. male presents with [...] Size: Adult long) Pulse 61 Temp 98.4 F (Temporal) Resp 16 Wt 136 lb 12.8 oz SpO2 96% BMI 20.80 kg/m Smoking Status Every Day BSA 1.73 m Physical Exam Vitals and nursing note reviewed. [...] of the risks of continued smoking: stroke, SC, all forms of cancer, lung disease, and . Options for quitting smoking include: cold turkey, hypnosis, acupuncture, nicotine replacement meds (gum, lozenges, and patches), Buproprion, and Varenicline. At this time pt is encouraged to evaluate their goals for wanting to quit smoking, and reach out to provider when ready to start this process documented in this encounter [facility] Instructions 08-02-2024 Patient Instructions Note Date & Type Note Facility 08-02-2024 Instructions Bertha Pappas NP - 08/02/2024 3:20 PM EDT Try Naproxen (anti inflammatory) twice a day with food Tizanidine (muscle relaxer) at bedtime for sleep-may make drowsy Stretching exercises If not better in 3 weeks call off and we will order PT Check xray documented in this encounter [facility] Progress note 06-23-2022 Note Date & Type Note Facility 06-23-2022 Note Orthopedic Surgery Subjective New Patient of the Left Hand 06/23/22 Eduardo Pham is a 42 y.o. male presenting for evaluation of left ring finger pain. He left handed and injured the finger in mid-March while bowling. Pain increases with making a fist and localizes to the 4th metacarpal. He saw his PCP Dr. Mccall in April and was given a Prednisone pack which provided relief. He states he has tried returning to bowling which aggravates it but the pain is then relieved 1-2 days later. States he only plans on bowling one more time this season. 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 Review of Systems unremarkable aside from what is noted in HPI Patient History No past surgical history on file. Past Medical History: Diagnosis Date Radius and ulna distal fracture 12/14/1997 Objective General: Body mass index is 21.29 kg/m???. No acute distress, comfortable Respiratory: Unlabored breathing with normal rate, no cough Cardiovascular: Warm well perfused extremities Psych: Appropriate mood behavior Left Hand: - Tender to palpation over palmar aspect of 4th metacarpal which increases with flexion of 4th digit - Full ROM of the wrist and digits in all planes - Normal sensation in the median and ulnar nerve distributions - Negative Tinel sign at the Cubital and Carpal tunnels Imaging personally reviewed: MRI LT hand on 05/05/22 demonstrates tenosynovitis of fourth flexor tendons Assessment/Plan Eduardo Pham is a 42 y.o. male with left ring finger flexor tenosynovitis. - Patient reports gradual improvement and states it only bothers him after bowling. - If pain persists can consider CSI - Recommended passive stretching of the digits for short intervals several times throughout the day - Follow up as needed Tolu Staples MS3 06/23/22 10:09 AM As the teaching physician, I have personally performed or re-performed the history of present illness, physical exam and medical decision-making activities of the encounter and verified the medical student's documentation. I made pertinent changes as necessary to ensure accurate documentation. Additional Comments: his trigger finger seems to be improving with time. He states he only has 1 bowling match left in the season. We talked about some options for treatment. He would like to just get through the season and then try stretching over the summer to see if his symptoms resolve. He will call if he is having worsening problems. [facility] Evaluation note Note Date & Type Note Facility Evaluation note Diagnosis Cervical spondylosis- Primary Cervical spondylosis without myelopathy Tobacco dependence Tobacco use disorder documented in this encounter [facility] Evaluation note Note Date & Type Note Facility Evaluation note Diagnosis Cervical spondylosis- Primary Cervical spondylosis without myelopathy Tobacco dependence Tobacco use disorder Cervical spondylosis Cervical spondylosis without myelopathy documented in this encounter [facility] Evaluation note Note Date & Type Note Facility Evaluation note Diagnosis Cervical spondylosis- Primary Cervical spondylosis without myelopathy Tobacco dependence Tobacco use disorder Cervical spondylosis- Primary Cervical spondylosis without myelopathy documented in this encounter [facility] Evaluation note Note Date & Type Note Facility Evaluation note Diagnosis Cervical spondylosis- Primary Cervical spondylosis without myelopathy Tobacco dependence Tobacco use disorder Encounter for adult wellness visit- Primary Tobacco dependence Tobacco use disorder Colon cancer screening Special screening for malignant neoplasms, colon Cervical spondylosis Cervical spondylosis without myelopathy documented in this encounter [facility] Summary Purpose Family History No Family History Records FoundNo Family History Records FoundNo Family History Records Found Advance Directives No Advanced Directives Records FoundNo Advanced Directives Records FoundNo Advanced Directives Records Found Additional Source Comments (unrecognized sect ion and content) No Status Records FoundNo Status Records FoundNo Status Records Found INFORMATION SOURCE (unrecogn ized section and content) DATE CREATED AUTHOR [facility]/09/2022 [facility] DATE CREATED AUTHOR AUTHOR'S ORGANIZ ATION 06/24/2022 [facility] DATE CREATED AUTHOR AUTHOR'S ORGANIZ ATION 09/30/2024 [facility] Care Teams (unrecognized sec tion and content) Blade Aligner Relationship Specialty Start Date End Date Miguel Angel Mccall MD [address] [place] [phone] PCP - General Family Medicine 04/21/23 Blade Aligner Relationship Specialty Start Date End Date Miguel Angel Mccall MD [address] [place] [phone] PCP - General Family Medicine 04/21/23 Blade Aligner Relationship Specialty Start Date End Date Miguel Angel Mccall MD [address] [place] [phone] PCP - General Family Medicine 04/21/23 Blade Aligner Relationship Specialty Start Date End Date Miguel Angel Mccall MD [address] [place] [phone] PCP - [facility] 04/21/23 Blade Aligner Relationship Specialty Start Date End Date Miguel Angel Mccall MD [address] [place] [phone] PCP - [facility] 04/21/23 Blade Aligner Relationship Specialty Start Date End Date Miguel Angel Mccall MD [address] [place] [phone] PCP - [facility] Family [facility] 04/21/23 Blade Aligner Relationship Specialty Start Date End Date Miguel Angel Mccall MD [address] [place] [phone] PCP - General Family [facility] 04/21/23 Reason for Visit (unrecogniz ed section and content) Reason Comments Back Pain Reason Comments Med Refill Reason Comments Annual Exam FOR RECORDS PERTAINING TO PATIENTS WHO ARE OR HAVE BEEN ENROLLED IN A CHEMICAL DEPENDENCY/SUBSTANCEABUSE PROGRAM, SOME INFORMATION MAY BE OMITTED. This clinical summary was aggregated from multiple sources. Caution should be exercised in using it in the provision of clinical care. This summary normalizes information from multiple sources, and as a consequence, information in this document may materially change the coding, format and clinical context of patient data. In addition, data may be omitted in some cases. CLINICAL DECISIONS SHOULD BE BASED ON THE PRIMARY CLINICAL RECORDS. [facility]. provides no warranty or guarantee of the accuracy or completeness of information in this document.
[2024-10-14 10:48] LABS: Hematocrit 42.4 % (42.0-54.0); Hemoglobin 14.6 g/dL (14.0-18.0); Immature Granulocytes Abs Auto 0.02 10^3/uL (0.00-0.03); Immature Granulocytes Pct Auto 0.3 % (0.0-0.5); Lymphocytes Absolute Auto 3.1 10^3/uL (1.2-3.8); Mean Corpuscular HGB Conc 34.4 g/dL (29.9-35.2); Mean Corpuscular Hemoglobin 32.2 pg (25.9-34.0); Mean Corpuscular Volume 93.4 fL (80.0-94.0); Platelet Count 220 10^3/uL (150-450); Red Blood Count 4.54 10^6/uL (4.70-6.10); White Blood Count 7.6 10^3/uL (4.0-11.0)
[2024-10-14 10:56] LABS: Glucose Urine UA NEGATIVE (NEGATIVE)
[2024-10-14 11:20] LABS: Cast Seen? NONE SEEN #/LPF (NONE SEEN); Crystals Seen? None Seen #/HPF (None Seen); Urine Culture Indicated NO
[2024-10-14 11:21] LABS: Alanine Aminotransferase 28 U/L (16-63); Albumin Globulin Ratio 1.3; Albumin Level 4.0 g/dL (3.4-5.0); Alkaline Phosphatase 54 U/L (46-116); Anion Gap 11.8; Aspartate Amino Transferase 19 U/L (15-37); Blood Urea Nitrogen 8.0 mg/dL (7.0-18.0); Calcium 8.8 mg/dL (8.5-10.1); Carbon Dioxide 29.6 mmol/L (21.0-32.0); Chloride 105 mmol/L (98-107); Cholesterol 157 mg/dL (<=200); Estimated GFR (African America >60 (>=60 mL/min/1.73m^2); Estimated GFR (Non-African Ame >60 (>=60 mL/min/1.73m^2); Globulin 3.0 g/dL; Glucose 90 mg/dL (74-106); HDL Cholesterol 50 mg/dL (40-60); Potassium 4.4 mmol/L (3.5-5.1); Sodium 142 mmol/L (136-145); Thyroid Stimulating Hormone 1.748 uIU/mL (0.358-3.740); Total Protein 7.0 g/dL (6.4-8.2); Triglycerides 88 mg/dL (<=150); VLDL CHOLESTEROL 17.6 mg/dL
== END 2024-10-14 10:21 | disposition home or self-care (01) ==
PROVIDERS: PCP Family Medicine; Visit Provider Nurse Practitioner
DX: Z00.00 Encounter for general adult medical examination without abnormal findings (principal)
CPT/HCPCS: 36415; 80053; 80061; 81001; 84443; 85025

== ENCOUNTER 2025-02-08 13:55 | Outpatient (OUT) | payer OTHER, SELFPAY ==
--- OUTSIDE RECORDS SUMMARY | 2025-01-29 09:01 | XMS_ITS | Continuity of Care Document ---
Author Organization [facility] Address [address] [place] [address] Phone Care Team Providers Care Personal Care Aid Name Role Phone Bertha Pappas NEON SIGN MAKER-C Primary Care Provider Bertha Pappas NEON SIGN MAKER-C Attending Provider César Grier DO Attending Provider Care Teams Patient Care Team Team Status: Active Member Role/Relationship Status Dates Bertha Pappas NEON SIGN MAKER-C Primary Care Provider Active Visit Care Team Team Status: Inactive Member Role/Relationship Status Dates Bertha Pappas , NEON SIGN MAKER-C Primary Care Provider Active Start: November 29, 2024 End: November 29, 2024Bertha Pappas NEON SIGN MAKER-CAttending ProviderActiveStart: November 29, 2024 End: November 29, 2024 Visit Care Team Team Status: Inactive Member Role/Relationship Status Dates Bertha Pappas , NEON SIGN MAKER-C Primary Care Provider Active Start: December 21, 2024 End: December 21, 2024Bertha Pappas NEON SIGN MAKER-CAttending ProviderActiveStart: December 21, 2024 End: December 21, 2024 Visit Care Team Team Status: Inactive Member Role/Relationship Status Dates Bertha Pappas , NEON SIGN MAKER-C Primary Care Provider Active Start: January 02, 2025 End: January 02, 2025Bertha Pappas NEON SIGN MAKER-CAttending ProviderActiveStart: January 02, 2025 End: January 02, 2025 Patient Care Team Team Status: Inactive Member Role/Relationship Status Dates Bertha Pappas , NEON SIGN MAKER-C Primary Care Provider Active Start: January 29, 2025 End: January 29, 2025Eric N Rochelle Grier ProviderActiveStart: January 29, 2025 End: January 29, 2025 Chief Complaint and Reason for Visit Chief Complaint Admit Date 8W November 29, 2024 3: 22pm M47.812 December 21, 2024 5 :21pm 1M January 02, 2025 3 :32pm SPINAL STENOSIS-CERVICAL January 29 12:52pm Reason for Visit Admit Date Cervical spondylosis November 29, 2024 3 :22pm Nicotine dependence, cigarettes, uncompl icated November 29, 2024 3:22pm Cervical spondylosis January 02, 2025 3:32pm Nicotine dependence, cigarettes, uncompl icated January 02, 2025 3:32pm Cervical spondylosis January 29, 2025 12:52pm Reason for Referral Type Reason(s) Provider Provider Contact Information P barbara Address Start Date Foraminal stenosis of cervical region M48.02 - Spinal stenosis, cervical iylkwhR23.02 - Spinal stenosis, cervical regionBellevue Pain ManagementWork Phone: [phone] [facility], [facility] [id number] 2024 Allergies, Adverse Reactions, Alerts Allergen Type Severity Reaction Last Updated Verified Status No Known Allergies Allergy Unknown January 29, 2025 1:01pmYesActive Social History Smoking Status Status Start Date End Date Date of Observa tion Smokes tobacco daily (finding) January 29, 2025 1:01pm Observation Status Observation Response Date of Response Legal Sex [facility] (finding) [facility] 1980 Problems Active Problems Problem Diagnosis/Recorded Date Onset Date Stat Foraminal stenosis of cervical region December 28 8:23pm Unknown Active Nicotine dependence, cigaret kassidy, uncomplicated November 26, 2024 3:42pm Unknown Active Cervical spondylosis November 26, 2024 3:41pm Unkno wn Active Herpes simplex infection of genitourinary system November 26, 2024 3:42pm Unknown Active Vitamin D deficiency November 26, 2024 3:42pm Unkno wn Active Medications Medication Status Dose Units Route Directions Qty Days Refills S tart Date Stop Date End Date Reason(s) Instructions Adherence Valacyclovir (Valtrex) 500 mg tablet Active 500 MG PO Daily November 25, 2024 11:00pmComplies with drug therapy Procedures Procedure Date Performed Status MR cervical spine wo con December 21, 2024 4:22 pm completed XR pre/post mri xray December 21, 2024 4:25pm c ompleted Relevant Diagnostic Tests and/or Laboratory Data Diagnostic Imaging Reports Author Scott Mohan [facility] HospitalAuthoredOctlake [facility] 2024 8:17pmReportDictated Date/TimeDictated ByStatusRadiology ReportOctober 2024 8:17pmSha DalyAshtabula County Medical Center [facility] [address] [place] [address] MRI Report Signed Patient: Franc Servin III MR#: [id number] : 1980 Acct:[id number] Age/Sex: 44 / M ADM Date: 5 Loc: Room: Type: [facility] Attending Dr: Bertha FIELDS Copies to: DONNIE Herrera~ Ordering Provider: DONNIE Herrera Date of Service: 12/21/24 MR/MR cervical spine wo con: M47.812 - Spondylosis without myelopathy or radiculopathy... ([id number]) XR/XR pre/post mri xray: PRE EXAMINATION: MRI OF THE CERVICAL SPINE WITHOUT CONTRAST /X-RAY CERVICAL SPINE, 3 VIEWS CLINICAL DATA: Spondylosis of the cervical spine without myelopathy or radiculopathy. COMPARISON: None TECHNIQUE: Multiecho imaging was performed in the sagittal and axial plane without contrast administration. FINDINGS: X-ray cervical spine: Straightening. Ycfv-jm-bxdrdgzb degenerative changes C5-C6 no fracture or malalignment.. Neural from encroachment notably in the right at C5-C6 MRI cervical spine: Motion degradation. Cervical vertebral heights are maintained. Minimal straightening. Mild intervertebral space narrowing C5-C7. Modic type I endplate changes C5-C7 with minimal Modic type II changes C5-6. Cervical cord is grossly unremarkable in signal and morphology within the constraints of motion degradation. Prevertebral and paraspinal soft tissues are unremarkable. C2-C3: Minimal facet arthropathy. No significant disease central canal or neural from narrowing identified. C3-C4: Minimal facet arthropathy. No significant disease central canal or neural foraminal narrowing identified. C4-C5: Minor facet arthropathy. Minimal right-sided uncovertebral spurring. Minimal right foraminal narrowing. Canal and left foramen are patent. C5-6: Broad-based disc bulge with uncovertebral spurring right greater than left. This results in moderate severe right neural foraminal narrowing and moderate left neural foraminal narrowing. Minimal central canal stenosis. C6-7: Uncovertebral spurring and minimal broad-based bulge. Mild bilateral neural foraminal narrowing. Minor central stenosis. C7-T1: No significant disease is canal or neural foramen identified. Facet arthropathy. MR/MR cervical spine wo con IMPRESSION: Evaluation degraded by motion artifact. Degenerative changes notably at C5-C6, right greater than left. Impression dictated by: Scott Mohan M.D. 12/21/2024 8:23 PM Dictation Location: [place] [address] Transcribed By: [facility] 12/21/242022 Dictated By: Scott Mohan MD 12/21/242016 Signed By: <Electronically signed by Scott Mohan MD in [place]> 12/21/242022 Vital Signs Vital Reading Result Reference Range Collection Date/Time Height 68 [in_i] November 29, 2024 2:16ybKxfros21.00 kgOctober 2024 2:51pmBody Temperature 97.8 [degF]97.6-99.0October 2024 2:51pmHeart Rate64 /mtf36-293Idgfsss 2024 2:51pmRespiratory rate16 /tpz69-42Evdgktk 2024 2:51pmOxygen saturation by Pulse omwpyzul11 %95-100October 2024 2:51pmBP Insffoky201 mm[Hg]100-140 November 29, 2024 2:51pmBP Zxqeklvfu90 mm[Hg]60-100October 2024 2:51pmBMI (Body Mass Index)20.4 kg/h2Obqayga 2024 2:15deFmyenu68 [in_i]January 02, 2025 3:03azHmungf91.65 kgNov2024 3:44pmBody Yyybgtuljkg87.4 [degF] 97.6-99.0Nov2024 3:44pmHeart Rate65 /qxu94-510Nyvycyob 4th, 2025 3:44pmRespiratory rate16 /jbe87-42KffegppiJanuary 02, 2025 3:44pmOxygen saturation by Pulse %95-100Nov2024 3:44pmBP Teklgtdr812 mm[Hg]100-140 January 02, 2025 3:44pmBP Fqpkimsxh21 mm[Hg]60-100Nov2024 3:44pmBMI (Body Mass Index)20.9 kg/o2LyjrorzbJanuary 02, 2025 3:27maOiktwt63 [in_i]January 29, 2025 1:79xaNemvwh88.40 kgDecember 2024 1:00pmBMI (Body Mass Index)20.9 kg/q4Vzrrbvcq 2024 1:00pm Advance Directives Advance Directive Response Recorded Date/ Time Advance Directives No December 29, 2024 1:24pm Insurance Providers Guarantor Franc Servin , III Address [address] [place] [address]Lzvsifj Info.Home Phone: Coverage Status Update:2024 Payer Group Member ID Coverage Type Subscriber Relationship to Subscriber Effective Date Expiration Date Regular Insurance [address] [facility] [address] [facility] [id number] Stull , III Id: [id number] [address] [place] [address] [facility] Phone: [facility] Company Id: [id number] Stull , III Id: [id number] [address] [place] [address] Home Phone: SelfUni[id number] Servin , III Id: [id number] [address] [place] [address] Home Phone: Self Encounters Encounter Location(s) Arrival/Admit Date Discharge/Departure Date Discharge/Departure Disposition Provider(s) Departed Physician/ Provider Office Visit -[facility] Family Medicine [place] November 29, 2024 3:22pm November 29, 2024 4:12pm Discharged to home care or self care (routine discharge) DONNIE Herrera Departed Clinical -[facility] December 21, 2024 5:21pm December 21, 2024 5:22pm Discharged to home care or self care (routine discharge) DONNIE Herrera Departed Physician/ Provider Office Visit -[facility] January 02, 2025 3:32pm January 02, 2025 4:22pm Discharged to home care or self care (routine discharge) DONNIE Herrera Departed Physician/ Provider Office Visit -[facility] January 29, 2025 12:52pm January 29, 2025 1:57pm Discharged to home care or self care (routine discharge) César Grier , Recent Diagnosis Onset Date Admit Date Cervical spondylosis Unknown November 3:22pm Nicotine dependence, cigarettes, uncomplicated U nknown November 29, 2024 3:22pm Cervical spondylosis Unknown December 3:32pm Nicotine dependence, cigarettes, uncomplicated U nknown January 02, 2025 3:32pm Cervical spondylosis Unknown January 12:52pm Assessments Diagnosis Onset Date Resolution Status Admit Date Cervical spondylosis acuteOct2024 3:22pmNicotine dependence, cigarettes, uncomplicatedacute November 29, 2024 3:22pmCervical spondylosisacuteNovember 2024 3:32pm Nicotine dependence, cigarettes, uncomplicatedacuteNov2024 3:32pm Cervical spondylosisacuteDecember 2024 12:52pm Plan of Treatment Author Bertha Pappas [facility] HospitalAuthoredOctober 2024 3:14pmhas had xray, and PT ordered no better despite conservative measures will order MRI c spine The patient has been advised of the risks of continued smoking: stroke, UT, all forms of cancer, lung disease, and . Options for quitting: cold turkey, hypnosis, acupuncture, nicotine replacement meds (gum, lozenges, and patches), as well as oral meds: buproprion or varenicline . At this time pt is encouraged to evaluate their goals for wanting to quit smoking, and reach out to provider when ready to start this process Author César Grier [facility] HospitalParishhoredDecealona 2024 1:44pmIn summary this patient is a 44-year-old male that presents to clinic today with chief complaints of axial cervical neck pain and occasional right greater than left upper extremity radicular symptoms described as numbness and tingling where he states his to the triceps region to his hand. At this time independent reviewed MRI from December 21, 2024. I gone over the MRI as well with him and his Jacquelyn where I think that the most obvious area is at the C5-6 level there is degenerative disc disease as well as right greater than left foraminal stenosis. Given his age smoking status as well as having not attempted injections did make recommendations to attempt injections and first. Because he states that his cervical neck pain is worst thing that troubles in the most having failed physical therapy may benefit from facet injections from C5-C7 therefore we will refer him to pain management for C5 C7 facet injections. Like see him back in 3 months time. See how he is doing. I did make mention that the right C5-6 foramen does have narrowing to it which could cause a right C6 radiculopathy which I did tell him that we have a better track record surgically to correct this if that were the chief complaints. And so for that identified with the C6 dermatomal distribution is and told him that that he can keep an eye on this. Will have him come back in 3 months time. For reevaluation. All questions were answered to the satisfaction of the patient as well as was in attendance today and they are agreement with the above plan. Author Bertha Pappas [facility] HospitalAuthoredNovember 2024 6:43amno better despite conservative measures xray/MRI: facet arthropathy, spinal stenosis, DDD was referred to neurosurgery scheduled 01/29/25 The patient has been advised of the risks of continued smoking: stroke, UT, all forms of cancer, lung disease, and . Options for quitting: cold turkey, hypnosis, acupuncture, nicotine replacement meds (gum, lozenges, and patches), as well as oral meds: buproprion or varenicline . At this time pt is encouraged to evaluate their goals for wanting to quit smoking, and reach out to provider when ready to start this process Future Tests Future scheduled test information is unavailable Pending Tests Pending diagnostic test information is unavailable Future Visits Future appointment information is unavailable Future Procedures Future procedure information is unavailable Future Medications Future medication information is unavailable Patient Instructions Patient instructions are unavailable Hospital Discharge Instructions Ambulatory Orders* Referral to Pain Management Location: None Selected
--- NOTE | 2025-02-08 13:58 | PM.CN ---
Consult Note: HPI Data of Consult Patient: new to practice Consult date: 02/08/25 Requesting Physician: Laura Noyola NP Primary Care Provider: Miguel Angel Hernandez MD Consult Narrative Reason for consult: chronic neck pain Narrative: Franc Servin a 44 year old male presents for evaluation and management of chronic neck pain > 6 months secondary to ADLs and work, without injury. 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 Pt recently completed > 6 weeks of PT for neck pain without benefit. Pt was evaluated by DIVINE Grier who recommends pt undergo C5-7 MBBs in consideration of RFA for his chronic neck pain. Cervical xray with results below, cervical MRI available in paper chart. Patient reports pain today 4/10 aching increasing at times to 10/10 with twisting, pulling, lifting, bending, looking up, and activity. pt notes improvement with looking down. denies heaviness/weakness to BUE. cc:: CC: Laura Noyola NP Review of Systems ROS Ears, nose, mouth, and throat Reports: neck pain Exam Constitutional Documenting provider has reviewed patient's vital signs: yes Common normals: no apparent distress, oriented x3 and alert General appearance: cooperative HENMT Common normals: normocephalic, hearing grossly normal bilaterally and moist oral mucous membranes Head and scalp: normocephalic Eye Common normals: PERRL Pupil: PERRL Neck & C-Spine Cervical spine: cervical ROM abnormal, pain with cervical ROM, loss of normal cervical lordosis and cervical spine tenderness C5, C6 and C7 Other: bilateral facet loading tenderness noted C5-7 sensation intact BUE negative spurlings Chest Common normals: inspection of chest normal Respiratory Common normals: normal respiratory effort, no retractions and no use of accessory muscles Neuro Common normals: oriented x3 Sensorium/orientation: alert Psych Common normals: mental status grossly normal, thought process normal, cooperative, affect normal, speech normal and activity/motor behavior normal Speech: normal speech Thought process: normal thought process Results Imaging cervical xray: Attestation: I have reviewed the pertinent imaging results. Radiologist's impression: POSTOPERATIVE CHANGES: None BONY ALIGNMENT: Straightening HYPERMOBILITY::No bending imaging. LISTHESIS:None FRACTURE: None DISC DEGENERATION: Moderate C5-6 disc space narrowing with endplate spurring. Mild progression FACETS: Unremarkable FORAMEN: Unremarkable. DENS: Intact CRANIOCERVICAL JUNCTION: Unremarkable SOFT TISSUES: Unremarkable Additional Findings Additional findings: If on a controlled substance or opioids, I have checked an [place] report on this patient and there are no aberrancies noted in the prescribing history.??If on a controlled substance or opioid a drug screen was completed and reviewed within the last year, and if there has not been a drug screen completed we ordered one today to monitor higher risk, state monitored pain medication use. As part of providing excellent, safe, comprehensive care, the following was completed at our patient's visit: 1. A medication reconciliation and review to ensure accurate knowledge of current/active medications, including asking our patients to inform us about any [id number] medications or herbal remedies/nutritional supplements/alternative remedies. 2. A review to specifically ensure our patients have had annual screening for screening for depression, screening for tobacco use, and screening for unhealthy alcohol use. For concerning screenings had a discussion with the patient, provided patient education, and recommended follow-up with primary care provider when appropriate. If patient noted with a risk of falling, they received education on strength, gait, and balance training to prevent future risk of falling. Portions of this note may have been carried over from the previous visit and updated as appropriate. Please note this office utilizes paper charting in addition to the electronic medical record. A list of current medications, vitals, and PMH is available there as the clinical staff outside of myself do not have access to [facility] charting during the clinic day operations. As part of providing quality comprehensive care the current medications, vitals, and PMH were reviewed in the paper chart. Assessment and Plan Assessment and Plan (1) Cervical spondylosis: (2) Degenerative disc disease, cervical: Plan The patient has had over 3 months of moderate to severe neck pain with functional impairment and inadequate response to conservative care including NSAIDS (unless there are contraindication such as concurrent blood thinners), multiple oral or topical pain medications, and home exercise program/physical therapy.? Patient has completed >6 weeks of guided home exercise program and/or formal physical therapy program without relief of their symptoms.? I have reviewed the imaging of the cervical spine and no red flags were identified The Oswestry Disability Index was completed, and the patient scored a 7%.? proceed with bilateral C5-6 C6-7 mbb x2 in consideration of RFA for facet mediated neck pain under fluoroscopy continue tylenol and naproxen prn otc prn continue HEP as tolerated f/u after each MBB
--- OUTSIDE RECORDS SUMMARY | 2025-02-08 13:59 | XMS_ITS | CCD ---
Author Organization [facility] Care Team Providers Care Post Doc Fellowship Name Role Phone DR MIGUEL ANGEL MCCALL [...] Miguel Angel Mccall MD Primary Care Provider BERTHA PAPPAS Attending Unavailable BERTHA PAPPAS Attending Unavailable Mian WAGE AND HOUR INVESTIGATOR-C, Bertha Weber Primary Care Provider [phone] Mian WAGE AND HOUR INVESTIGATOR-C, Bertha Weber Attending Provider [phone] Bertha Pappas Attending Unavailable Bertha Pappas Primary Care Unavailable Bertha Pappas Admitting Unavailable Mian WAGE AND HOUR INVESTIGATOR-C, Bertha Weber Primary Care Provider Mian WAGE AND HOUR INVESTIGATOR-C, Bertha Weber Attending Provider [phone] Medications Current Medications MedicationDrug Class(es)DatesSig (Normalized)Sig (Original)naproxen 500 mg oral tablet (9 sources)Nonsteroidal Anti-inflammatory DrugStart: 08-02-2024 End: 78-73-3928xusy 1 tablet by mouth in the morningnaproxen (Naprosyn) 500 MG tablet Indications: Cervical spondylosis Take 1 tablet (500 mg) by mouthin the morning and 1 tablet (500 mg) in the evening. Take with meals. 60 tablet 08/30/2024 09/29/2024 ActivevalACYclovir 500 mg oral tablet (13 sources)Herpesvirus Nucleoside Analog DNA Polymerase Inhibitor, Herpes Simplex Virus Nucleoside Analog DNA Polymerase Inhibitor, Herpes Zoster Virus Nucleoside Analog DNA Polymerase InhibitorStart: 91-63-5965dbjb 1 tablet by mouth once dailyStart: 62-64-0133argw 1 tablet by mouth in the morning valACYclovir (Valtrex) 500 MG tablet Take 500 mg by mouth in the morning. 06/22/2012 Active Completed/Discontinued Medications MedicationDrug Class(es)DatesSig (Normalized)Sig (Original)Baclofen 10 MG pack (3 sources)Start: 01-06-2019 End: 66-79-1750Yenagxrp 10 MG pack 01/06/2019 08/02/2024 Discontinued (Therapy completed)Start: 30-14-0781Xegscscp 10 MG pack 01/06/2019 ActivetiZANidine 4 mg oral tablet (8 sources)Central alpha-2 Adrenergic AgonistStart: 08-02-2024 End: 09-19-0758rjRGTlanpk (Zanaflex) 4 MG tablet Indications: Cervical spondylosis Take 1 tablet (4 mg) by mouth as needed at bedtime for muscle spasms for up to 20 days 20 tablet 08/02/2024 09/27/2024 Discontinued(Therapy completed) Problems Active Problems Problem ClassificationProblemDateDocumented DateEpisodic/ChronicNutritional deficiencies (13 sources)Vitamin D deficiency; Translations: [Vitamin D deficiency, unspecified]Onset: 206020-10-8464NgqoywxGuuqe connective tissue disease (6 sources)Pain in left hand; Translations: [PAIN IN LEFT HAND]Onset: 05-05-2022 EpisodicOther screening for suspected conditions (not mental disorders or infectious disease) (6 sources)Patient encounter status; Translations: [Encounter for screening for malignant neoplasm of colon]Onset: 013573-72-8940DgspwldoEquaejekter; intervertebral disc disorders; other back problems (20 sources)Cervical spondylosis; Translations: [Spondylosis without myelopathy or radiculopathy, cervical region]Onset: 406190-97-4625OsxnofmBrocsohaxji; intervertebral disc disorders; other back problems (1 source)Stenosis of intervertebral foramina; Translations: [Spinal stenosis, cervical region]37-32-3165VcjyueqmQqikifepc-related disorders (20 sources)Tobacco dependence syndrome; Translations: [Nicotine dependence, unspecified, uncomplicated]Onset: 484128-76-6706IwgulxoFadjzvzrzfnk (3 sources)CONTACT W/AND (SUSP) EXPOS COVID-19; Translations: [CONTACT W/AND (SUSP) EXPOS COVID-19]Onset: 42-55-3616Vftbb infection (13 sources)Herpes simplex; 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, unspecified]Onset: 386035-01-4748Rfwxadz Past or Other Problems Problem ClassificationProblemDateDocumented DateEpisodic/ChronicUnclassified (1 source)CONTACT W/AND (SUSP) EXPOS COVID-19; Translations: [CONTACT W/AND (SUSP) EXPOS COVID-19]Onset: 10-21-2021 Results Test NameValueInterpretationReference RangeFacilityMagnetic resonance imaging reportOrdered By: Scott Mohan on 30-98-2250Exlel reportTHE [place] [address] MRI Report Signed Patient: Eduardo Pham III MR#: [id number] : 1980 Acct:[id number] Age/Sex: 44 / M ADM Date: 5 Loc: MR Room: Type: [facility] Attending Dr: Bertha FIELDS Copies to: DONNIE Herrera~ Ordering Provider: DONNIE Herrera Date of Service: 12/21/24 MR/MR cervical spine wo con: M47.812 - Spondylosis without myelopathy orradiculopathy... ([id number]) XR/XR pre/post mri xray: PRE EXAMINATION: MRI OF THE CERVICAL SPINE WITHOUT CONTRAST /X-RAY CERVICAL SPINE, 3 VIEWS CLINICAL DATA: Spondylosis of the cervical spine without myelopathy or radiculopathy. COMPARISON: None TECHNIQUE: Multiecho imaging was performed in the sagittal and axial plane without contrast administration. FINDINGS: X-ray cervical spine: Straightening. Hxka-gr-vmavvjxi degenerative changes C5-C6 no fracture or malalignment.. Neural from encroachment notably in the right at C5-C6 MRI cervical spine: Motion degradation. Cervical vertebral heights are maintained. Minimal straightening. Mild intervertebral space narrowing C5-C7. Modic type I endplate changes C5-C7 with minimal Modic type II changesC5-6. Cervical cord is grossly unremarkable in signal and morphology within the constraints of motion degradation. Prevertebral and paraspinal soft tissues are unremarkable. C2-C3: Minimal facet arthropathy. No significant disease central canal or neural from narrowing identified. C3-C4: Minimal facet arthropathy. No significant disease central canal or neural foraminal narrowing identified. C4-C5: Minor facet arthropathy. Minimal right-sided uncovertebral spurring. Minimal right foraminalnarrowing. Canal and left foramen are patent. C5-6: [...] Mohan M.D. 12/21/2024 8:23 PM Dictation Location: [place] [address] Transcribed By: [facility] 12/21/242022 Dictated By: Scott Mohan MD 12/21/242016 Signed By: 12/21/242022 [facility] Work Phone: xr pre/post mri xrayon 77-04-8489QN pre/post mri xray [facility] [place] [address] [place] [address] MRI Report Signed Patient: Eduardo Pham III MR#: [id number] : 1980 Acct:[id number] Age/Sex: 44 / M ADM Date: 12/21/24 Loc: MR Room: Type: [facility] Attending Dr: Bertha FIELDS Copies to: DONNIE Herrera Ordering Provider: DONNIE Herrera Date of Service: 12/21/24 MR/MR cervical spine wo con: M47.812 - Spondylosis without myelopathy or radiculopathy... ([id number]) XR/XR pre/post mri xray: PRE EXAMINATION: MRI OF THE CERVICAL SPINE WITHOUT CONTRAST /X-RAY CERVICAL SPINE, 3 VIEWS CLINICAL DATA: Spondylosis of the cervical spine without myelopathy or radiculopathy. COMPARISON: None TECHNIQUE: Multiecho imaging was performed in the sagittal and axial plane without contrast administration. FINDINGS: X-ray cervical spine: Straightening. Viqq-hr-hsueydvi degenerative changes C5-C6 no fracture or malalignment.. [...] Mohan M.D. 12/21/2024 8:23 PM Dictation Location: [place] [address] Transcribed By: [facility] 12/21/242022 Dictated By: Scott Mohan MD 12/21/242016 Signed By: 12/21/242022[facility] Phys[facility] GroupALL CBC WITH AUTO DIFFon 55-36-7542SQQGASPUH ABSOLUTE AUTO0.1NOMS HealthcareBasophils/100 WBC (Bld)1.1 % 0.2 - 2.0 %NOMS HealthcareEosinophils/100 WBC (Bld)3.2 %0.9 - 7.0 %NOMReynolds County General Memorial HospitalErythrocyte distribution width (RBC) [Ratio]11.6 %11.0 - 15.0 %[facility] HospitalHematocrit (Bld) [Volume fraction]42.4 %42.0 - 54.0 %[facility] Hemoglobin (Bld) [Mass/Vol]14.6 g/dL14.0 - 18.0 g/dLChristian HospitalIMMATURE GRANULOCYTES ABS AUTO0.02NOUniversity Health Truman Medical CenterImmature granulocytes/100 WBC (Bld)0.3 % 0.0 - 0.5 %Christian HospitalInterpretation and review of laboratory results AbnormalNOUniversity Health Truman Medical CenterLYMPHOCYTES ABSOLUTE AUTO3.1[facility] Lymphocytes/100 WBC (Bld)40.6 %20.5 - 60.0 %[facility]H (RBC) [Entitic mass]32.2 pg25.9 - 34.0 pgNOSt. Joseph Medical CenterHC (RBC) [Mass/Vol]34.4 g/dL29.9 - 35.2 g/dLTenet St. LouisV (RBC) [Entitic vol]93.4 fL80.0 - 94.0 fLChristian HospitalMONOCYTES ABSOLUTE AUTO0.6NOUniversity Health Truman Medical CenterMonocytes/100 WBC (Bld)8.4 % 1.7 - 12.0 %NOMReynolds County General Memorial HospitalNEUTROPHILS ABSOLUTE AUTO3.5[facility] Neutrophils/100 WBC (Bld)46.4 %43.0 - 75.0 %NOMReynolds County General Memorial HospitalPlatelet mean volume (Bld) [Entitic vol]10.5 fL9.5 - 13.5 fLNOUniversity Health Truman Medical CenterTBH EO #0.2[facility] TBH [id number] [facility] RBC4.54LowNOMS Marion HospitalTB WBC7.6[facility] CLINISYNCNOAZ HealthcareXR CERVICAL SPINE 2-3Von 84-46-2581[address] [address] XRay Report Signed Patient: EDUARDO PHAM III MR#: [id number] : 1980 Acct:[id number] Age/Sex: 44 / M ADM Date: 08/03/24 Loc: JHONNY Attending Dr: Bertha Pappas NP Ordering Physician: Bertha Pappas NP Date of Service: 08/03/24 Procedure(s): XR cervical spine 2-3V Accession Number(s): [id number] cc: Bertha Pappas WAGE AND HOUR INVESTIGATOR; Miguel Angel Mccall M.D. The [address] [address] Patient Name: EDUARDO PHAM MRN: [id number] date: 1980 Sex: M Assigned Patient Location: [facility] Current Patient Location: [facility] Accession/Order Number: [id number] Exam Date: 08/03/2024 15:49 Report Date: 08/03/2024 [...] Owens M.D. 08/03/2024 3:51 PM Dictation Location: [place] [address] Electronically authenticated by: [id number] Y Date: 08/03/2024 15:51 Dictated By: Sivakumar Owens D.O. Signed By: 08/03/24 1553 DD/ 155 TD/TT: Fountain Server:GRACYadiologjaycee, Radiologist, - 08/03/2024 The [place] [id number] XRay Report Signed Patient: EDUARDO PHAM III MR#: [id number] : 1980 Acct:[id number] Age/Sex: 44 / M ADM Date: 08/03/24 Loc: RAD Attending Dr: Bertha Pappas NP Ordering Physician: Bertha Pappas NP Date of Service: 08/03/24 Procedure(s): XR cervical spine 2-3V Accession Number(s): [id number] cc: Bertha Pappas WAGE AND HOUR INVESTIGATOR; Miguel Angel Mccall M.D. [address] [address] Patient Name: EDUARDO PHAM MRN: [id number] date: 1980 Sex: M Assigned Patient Location: [facility] Current Patient Location: [facility] Accession/Order Number: [id number] Exam Date: 08/03/2024 15:49 Report Date: 08/03/2024 [...] Owens M.D. 08/03/2024 3:51 PM Dictation Location: [place] [address] Electronically authenticated by: [id number] Y Date: 08/03/2024 15:51 Dictated By: Sivakumar Owens D.O. Signed By: 08/03/24 155 DD/ 50 TD/TT: Fountain Server: SAMANTHA HealthcareRadiology Study observation (narrative)NOMS HealthcareXR CERVICAL SPINE 2-3VOrdered By: Radiologist Radiology on 85-07-7666[facility] Work Phone: Office Visiton 74-55-6693Efpzah-up [id number] Eduardo Pham 1980 M Date Provider Department Center 06/23/2022 [facility] MP ORTHO MPORTHO No family history on file Level of Service:17874 MI OFFICE/OUTPATIENT NEW LOW MDM 30-44 MINUTES Reason for Visit and Comments: New Patient [632][facility]MRI [facility] WO CONon 31-35-0135IMD HAND LT WO CONEXAM: MRI HAND LT WO CON HISTORY: Pain of left hand COMPARISON: None. TECHNIQUE: Multiplanar, multi sequential MRI sequences were performed head FINDINGS: This study is degraded secondary to cbdrc-vo-ppfa and isocenter of the study. Tenosynovitis of [...] Electronically authenticated by: AMBROSIO CORMIER Date: 2022-05-05 16:32NoPremier Health [facility] Hospital NorthCovid-19 PCR (CVDTBH)on 72-53-8359DHJH-CoV-2 (COVID-19) RNA KARENA+probe Ql (Unsp spec)Not detectedNormalNOT DETECTEDThe [facility] Comment on above:Result Comment: This test is not yet approved or cleared by the [place] FDA. When there are no FDA-approved or cleared tests available, and other criteria are met, FDA can make tests available under an emergency access mechanism called an Emergency Use Authorization (EUA). The EUA for this test is supported by the [place] of Health and Human Service's (HHS's) declaration that circumstances exist to justify the emergency use of in vitro diagnostics for the detection and/or diagnosis of the virus that causes COVID- 19. This EUA will remain in effect (meaning [...] of clinical signs and symptoms consistent with SARS-CoV-2.Performed By: #### CVDTBH #### [facility] [address] [place] [address] Dr. Kathryn Garcia Vital Signs Date TimeVital SignValuePerforming JcgpebprcIeqdncuv51-83-2155 15:44-0500Body pmzejx338.72 cmLisa Aichholz WAGE AND HOUR INVESTIGATOR-C Work Phone: [phone]11-04-2025 15:44-0500 Body mass index (BMI) [Ratio]20.9 kg/m2Lisa Aichholz WAGE AND HOUR INVESTIGATOR-C Work Phone: [phone] [place], [place] [address]011-04-2025 15:44-0500 Body runszukpzbd25.4 [degF]Bertha Aichholz WAGE AND HOUR INVESTIGATOR-C Work Phone: [phone]11-04-2025 15:44-0500 Body cueyri32.65 kgLisa Aichholz WAGE AND HOUR INVESTIGATOR-C Work Phone: [phone] [place], [place] [address]011-04-2025 15:44-0500 Diastolic blood yxoggiyi92 mm[Hg]Bertha Aichholz WAGE AND HOUR INVESTIGATOR-C Work Phone: [phone] [place], [place] [address]011-04-2025 15:44-0500 Heart rate65 /minLisa Aichholz WAGE AND HOUR INVESTIGATOR-C Work Phone: [phone]11-04-2025 15:44-0500 Respiratory rate16 /minLisa Aichholz WAGE AND HOUR INVESTIGATOR-C Work Phone: [phone] [place], [place] [address]011-04-2025 15:44-0500 SaO2% (BldA) [Mass fraction]98 %Bertha Aichholz WAGE AND HOUR INVESTIGATOR-C Work Phone: [phone]11-04-2025 15:44-0500 Systolic blood efurbilr289 mm[Hg]Bertha Aichholz WAGE AND HOUR INVESTIGATOR-C Work Phone: [phone]10-01-2025 15:51-0400 Body .72 cmLisa Aichholz WAGE AND HOUR INVESTIGATOR-C Work Phone: [phone]10-01-2025 15:51-0400 Body mass index (BMI) [Ratio]20.4 kg/m2Lisa Aichholz WAGE AND HOUR INVESTIGATOR-C Work Phone: [phone]10-01-2025 15:51-0400 Body yhxnsbomhin42.8 [degF]Bertha Aichholz WAGE AND HOUR INVESTIGATOR-C Work Phone: [phone] [place], [place] 1176310-01-2025 15:51-0400 Body efozta29 kgLisa Aichholz WAGE AND HOUR INVESTIGATOR-C Work Phone: [phone] [place], [place] [address]10-01-2025 15:51-0400 Diastolic blood frpjihwf97 mm[Hg]Bertha Aichholz WAGE AND HOUR INVESTIGATOR-C Work Phone: [phone]10-01-2025 15:51-0400 Heart rate64 /minLisa Aichholz WAGE AND HOUR INVESTIGATOR-C Work Phone: [phone]10-01-2025 15:51-0400 Respiratory rate16 /minLisa Aichholz WAGE AND HOUR INVESTIGATOR-C Work Phone: [phone]10-01-2025 15:51-0400 SaO2% (BldA) [Mass fraction]97 %Bertha Aichholz WAGE AND HOUR INVESTIGATOR-C Work Phone: [phone]10-01-2025 15:51-0400 Systolic blood iqrnmplt442 mm[Hg]Bertah Aichholz WAGE AND HOUR INVESTIGATOR-C Work Phone: [facility]07-30-2025 17:02-0400 Body mass index (BMI) [Ratio]21.04 kg/m2Lisa Keyshawnz WAGE AND HOUR INVESTIGATOR Work Phone: [facility] HospitalPteyvcmoug86-24-9769 17:02-0400Body temperature 98.49 [degF]Bertha Kaylierajni WAGE AND HOUR INVESTIGATOR Work Phone: [facility] HospitalBivrmzcmvw98-54-5313 17:02-0400Body .78 kgLisa Jaseholz WAGE AND HOUR INVESTIGATOR Work Phone: [facility] HospitalOklvonftta76-59-7312 17:02-0400Diastolic blood mm[Hg]Bertha Lottrajni WAGE AND HOUR INVESTIGATOR Work Phone: [facility] HospitalJhsesjvtdm70-17-9228 17:02-0400Heart rate63 /min Bertha Kaylierajni WAGE AND HOUR INVESTIGATOR Work Phone: [facility] HospitalWfqpazfsvi25-50-6183 17:02-0400Respiratory rate18 /minLisa Jaseholz WAGE AND HOUR INVESTIGATOR Work Phone: [facility] HospitalWsgcxrrxea87-09-1754 17:02-1889AkT1% (BldA) [Mass fraction]98 %Bertha Lagunameghana WAGE AND HOUR INVESTIGATOR Work Phone: [facility] HospitalFlgftezmwk30-06-2381 17:02-0400Systolic blood mm[Hg]Bertha Lagunameghana WAGE AND HOUR INVESTIGATOR Work Phone: [facility] HospitalQsrgnrgfkk27-59-6559 15:16-0400Body mass index (BMI) [Ratio]20.8 kg/m2Lisa Jaseholz WAGE AND HOUR INVESTIGATOR Work Phone: [facility] HospitalKrrznsuzoo40-07-9319 15:16-0400Body temperature 98.4 [degF]Bertha Kayliesheebaz WAGE AND HOUR INVESTIGATOR Work Phone: [facility] HospitalFfczgoyfvw65-32-5162 15:16-0400Body wxzutl05.05 kgLisa Kaylieteraholz WAGE AND HOUR INVESTIGATOR Work Phone: [facility] HospitalIaytuqqyku56-86-6803 15:16-0400Diastolic blood oudqutcw55 mm[Hg]Bertha Mian WAGE AND HOUR INVESTIGATOR Work Phone: noUniversity [facility] Medical CenterTewsgpkmeh04-09-6643 15:16-0400Heart rate61 /min Bertha Lagunabillyz WAGE AND HOUR INVESTIGATOR Work Phone: noUniversity Health [facility] Medical CenterGmmlmwyndb19-53-7781 15:16-0400Respiratory rate16 /minLi Mian WAGE AND HOUR INVESTIGATOR Work Phone: [facility] HospitalNfxgtjkjel82-31-4532 15:16-8026FaH5% (BldA) [Mass fraction]96 %Bertha Lagunabillyz WAGE AND HOUR INVESTIGATOR Work Phone: noUniversity Health [facility] Medical CenterKcmieklysu76-93-7199 15:16-0400Systolic blood lnhvjert299 mm[Hg]Bertha Kaylieterabillyz WAGE AND HOUR INVESTIGATOR Work Phone: noAZ [facility] Encounters Encounter DateEncounter TypeCare ProviderFacilityStart: 01-02-2025 End: 74-09-1121vosbhtykbdBxve J Aichholz WAGE AND HOUR INVESTIGATOR-C Work Phone: [facility] ClydeStart: 01-02-2025 End: 20-68-4161Hemnrhd encounter procedureLisa Gus Pappas WAGE AND HOUR INVESTIGATOR-C-[facility] Work Phone: Start: 12-21-2024 End: 55-26-7107Skkhijy encounter procedureLisa Gus Pappas WAGE AND HOUR INVESTIGATOR-C-[facility] [place] Work Phone: Start: 12-21-2024 End: 96-47-4540uwldhirwkuXafm J Kayliehholz WAGE AND HOUR INVESTIGATOR-C Work Phone: [facility]Start: 11-29-2024 End: 24-72-6999nswcmvsrahBmsf J Aichholz WAGE AND HOUR INVESTIGATOR-C Work Phone: [facility] Work Phone: Start: 11-29-2024 End: 48-39-1037Ppzficd encounter procedureLisa Gus Pappas WAGE AND HOUR INVESTIGATOR-C-[facility] Work Phone: Start: 10-14-2024 End: 61-08-8963Tiuholyjx Result EncounterLisa Mian WAGE AND HOUR INVESTIGATOR Work Phone: [facility] External Department UnsolicitedStart: 10-14-2024 End: 00-70-5963Zvghnujzl Result EncounterLisa Mian WAGE AND HOUR INVESTIGATOR Work Phone: [facility] External Department UnsolicitedStart: 09-27-2024 End: 34-25-3633Gdprzlvm preventive med est patient 40-64yrsBertha Pappas WAGE AND HOUR INVESTIGATOR Work Phone: [facility] CWM FMComment on above:Encounter for adult wellness visit (Primary Dx); Tobacco dependence; Colon cancer screening; Cervical spondylosisStart: 09-27-2024 End: 05-64-0683uswqzxhzxmVRDU RIGOot AvailableStart: 09-27-2024 End: 06-95-4999Ziombu flowsheetLisa Mian WAGE AND HOUR INVESTIGATOR Work Phone: [facility] CWM FMStart: 09-27-2024 End: 25-46-1760Bzzdyg flowsheetBertha Pappas WAGE AND HOUR INVESTIGATOR Work Phone: [facility] CWM FMStart: 09-27-2024 End: 60-27-7846Rubwmpo encounter statusLisa Mian WAGE AND HOUR INVESTIGATOR Work Phone: noms HealthcareStart: 09-05-2024 End: 59-74-6550Axnqry OnlyLisa Mian WAGE AND HOUR INVESTIGATOR Work Phone: n[facility] CWM FMComment on above:Cervical spondylosis (Primary Dx)Start: 08-29-2024 End: 70-51-5470VnqbrgKolr Mian WAGE AND HOUR INVESTIGATOR Work Phone: n[facility] CWM FMComment on above:Cervical spondylosisStart: 08-03-2024 End: 94-19-2973Kzhgibsvv Result EncounterLisa Mian WAGE AND HOUR INVESTIGATOR Work Phone: [facility] External Department UnsolicitedStart: 08-03-2024 End: 81-77-8761Dcgqdmerw Result EncounterLisa Jaseholz WAGE AND HOUR INVESTIGATOR Work Phone: [facility] External Department UnsolicitedStart: 08-02-2024 End: 42-16-0499Pfytbb outpatient visit 15 minutesLisa Kayliehholz WAGE AND HOUR INVESTIGATOR Work Phone: n[facility] CWM FMComment on above:Cervical spondylosis (Primary Dx); Tobacco dependenceStart: 08-02-2024 End: 55-67-2777kcqutzdebmTDKU AICHHOLZNot AvailableStart: 08-02-2024 End: 26-20-3230Oaewvk flowsheetLisa Aichholz WAGE AND HOUR INVESTIGATOR Work Phone: n[facility] CWM FMStart: 08-02-2024 End: 23-50-7386Sbehux flowsheetLisa Aichholz WAGE AND HOUR INVESTIGATOR Work Phone: [facility] CWM FMStart: 06-23-2022 End: 38-32-5866qsxvxvbjusUJHISV SKIEUniversity Children's Medical Center Dallastart: 05-05-2022 End: 26-57-4148dbbnqxxhuxIM MIGUEL ANGEL A NADERERFacility:U4Msajx: 10-21-2021 End: 77-05-6578lfzqxzxqrwEK MIGUEL ANGEL A NADERERFacility:H1 Procedures DateProcedureProcedure DetailPerforming ClinicianStart: 67-76-8699VR pre/post mri xrayLisa Kayliehholz WAGE AND HOUR INVESTIGATOR-C Work Phone: Start: 27-33-3503YGB of cervical spine without contrastLisa Aichholz WAGE AND HOUR INVESTIGATOR-C Work Phone: Start: 21-63-8319YJS CBC WITH AUTO DIFFLisa Aichholz WAGE AND HOUR INVESTIGATOR Work Phone: Start: 12-23-5124MN CERVICAL SPINE 2-3VLisa Aichholz WAGE AND HOUR INVESTIGATOR Work Phone: Plan of Treatment DateCare ActivityDetailAuthorStart: 11-29-2024 End: 07-44-4808Yibwwux encounter uoojnnivq35/01/2025 3:40 PM EDT Office Visit [facility] [address] [place] [address] Bertha Pappas, WAGE AND HOUR INVESTIGATOR [address] [place] [address] [facility] FMStart: 09-22-3553Itobypmem vaccinationNOMS HealthcareStart: 09-27-2024 End: 06-53-2146Rkavgyo encounter bapwmvozw67/30/2025 5:00 PM EDT Office Visit [facility] [address] [place] [address] Bertha Pappas, WAGE AND HOUR INVESTIGATOR [address] [place] [address] [facility] FMStart: 09-27-2024 End: 38-10-0357QWT W Auto Differential panel - BloodCBC and differential Lab Routine Encounter for adult wellness visit Expected: 09/27/2024 (Approximate), Expires: 09/27/2025[facility] Work Phone: Comment on above:Expected: 09/27/2024 (Approximate), Expires: 09/27/2025Start: 09-27-2024 End: 75-26-4487Kwiwxhpjcwxdk metabolic 2000 panel - Serum or PlasmaComprehensive metabolic panel Lab Routine Encounter for adult wellness visit Expected: 09/27/2024 (Approximate), Expires: 09/27/2025[facility] HealthcareComment on above: Expected: 09/27/2024 (Approximate), Expires: 09/27/2025Start: 09-27-2024 End: 60-98-7865Xuslm 1996 panel - Serum or PlasmaLipid panel Lab Routine Encounter for adult wellness visit Expected: 09/27/2024 (Approximate), Expires: 09/27/2025[facility] HealthcareComment on above:Expected: 09/27/2024 (Approximate), Expires: 09/27/2025Start: 09-27-2024 End: 91-23-4546Ehoekkdrirt colorectal cancer DNA and occult blood screening [Presence] in StoolCologuard colon cancer screening Lab Routine Colon cancer screening Expected: 09/27/2024 (Approximate), Expires: 09/27/2025[facility] Comment on above:Expected: 09/27/2024 (Approximate), Expires: 09/27/2025Start: 09-27-2024 End: 93-23-4499Sswdbkhchgn [Units/volume] in Serum or PlasmaTSH Lab Routine Encounter for adult wellness visit Expected: 09/27/2024 (Approximate), Expires: 09/27/2025NOAZ HealthcareComment on above:Expected: 09/27/2024 (Approximate), Expires: 09/27/2025Start: 09-27-2024 End: 37-83-8107Lfvoatmlth complete panel - UrineUrinalysis with reflex microscopic (clean catch) Lab Routine Encounter for adult wellness visit Expe cted: 09/27/2024 (Approximate), Expires: 09/27/2025NO[facility] HealthcareComment on above:Expected: 09/27/2024 (Approximate), Expires: 09/27/2025Start: 08-02-2024 End: 49-73-6092Ykqpdwg encounter btvvaklpc84/04/2025 3:20 PM EDT Office Visit [facility] [address] [place] [address] Bertha Pappas NP [address] [place] [address] ArrivedNOOKLAHOMA H[facility] ASSOCIATION FMComment on above:ArrivedStart: 08-02-2024 End: 93-44-1964GN Cervical spine 2 or 3 ViewsXR cervical spine 2 or 3 views Imaging Routine Cervical spondylosis Expected: 08/02/2024, Expires: 08/02/2025 [facility] Work Phone: Comment on above:Expected: 08/02/2024, Expires: 08/02/2025Start: 94-95-4251Wzbcaisbl for malignant neoplasm of colonNOAZ Healthcare Immunizations Immunization DateImmunizationNotesCare LugedajjFsetqrdh65-59-7980gatfxegbd virus vaccine, unspecified formulationBertha Pappas NP Work Phone: [facility] Payers DatePayer CategoryPayerPolicy [id number] Health InsuranceUNITED HEALTHCARE [id number] Health [id number] Health [id number] Social History DateTypeDetailFacilityStart: 67-46-9078Baljrjy smoking status NHISSmokes tobacco dailyNOMS HealthcareStart: 68-65-9482Hstzkkv of tobacco useCigarette SmokerACADIA HEALTHCARE HealthcareStart: 01-05-2023 End: 90-06-6833Ohtjxadupe smoked current (pack per day) - Npsszqle2ANCN HealthcareStart: 40-16-8312Lttrcxi use and exposureSmokeless tobacco non-user [facility] HealthcareStart: 02-23-2023 End: 66-45-9777Lgdtaiwjw beverage intakeCurrent drinker of alcohol (finding)[facility] HealthcareStart: 02-23-2023 End: 76-99-5795Lfxgaui use panelACADIA HEALTHCARE HealthcareStart: 25-23-4430Dpv [facility] [place] smoking status NHISUnknown if ever smoked [facility] Work Phone: SexMale (finding)[facility] Start: 05-54-6244Tki Assigned At [facility] Clinical Notes 06-23-2022 to 11-29-2024 Note Date & FltfRojzWsbfquzn20-25-9498 Evaluation note* Diagnosis Onset Date Resolution Status Admit Date Cervical spondylosis acuteOctober 2024 3:22pmNicotine dependence, cigarettes, uncomplicatedacute November 29, 2024 3:22pm [facility] Work Phone: 1(369) 936-459210-01-2025 Evaluation note* Diagnosis Onset Date Resolution Status Admit Date Cervical spondylosis acuteOctober 2024 3:22pmNicotine dependence, cigarettes, uncomplicatedacute November 29, 2024 3:22pmCervical spondylosisacuteNovember 2024 3:32pm Nicotine dependence, cigarettes, uncomplicatedacuteNov2024 3:32pm [facility] Work Phone: 1(372) 515-413507-30-2025 History of Present illness Narrative* Bertha Pappas NP - 09/27/2024 5:28 PM EDTAssociated Problem(s): Cervical spondylosis Cont PT Reviewed XR order as well * DENNYS TANNER - 09/27/2024 5:00 PM EDT Pt states the muscle relaxer were not helping much * Bertha Pappas NP - 09/27/2024 5:00 PM EDT Images from the original note [...] of the risks of continued smoking: stroke, [place], all forms of cancer, lung disease, and . Options for quitting smoking include: cold turkey, hypnosis, acupuncture, nicotine replacement meds(gum, lozenges, and patches), Buproprion, and Varenicline. At this time pt is encouraged to evaluate their goals for wanting to quit smoking, and reach out toprovider when ready to start this process Encounter [...] cologaurd Relevant Orders Cologuard colon cancer screening * Bertha Pappas NP - 09/27/2024 7:17 AM EDTAssociated Problem(s): Colon cancer screening Colon cancer screening options were discussed with patient, as well as why colon cancer screening is indicated. Options are Colonoscopy: direct visualization, every 10 years (unless indicated more frequently), risks and benefits were discussed Cologuard: every 3 years, risks and benefits were discussed , contraindications were discussed (family hx of colon cancer, colon polyps) Patient has elected to: cologaurd * Bertha Pappas NP - 09/27/2024 7:16 AM EDTAssociated Problem(s): Encounter for adult wellness visit Reviewed Ht/Wt/BMI Recommend eye exam yearly Recommend dental exams twice a year Balance work/leisure activities Exercises is recommended most days of the week (appropriate as chronic conditions allow) Follow up yearly and prn * Bertha Pappas NP - 09/27/2024 7:15 AM EDTAssociated Problem(s): Tobacco dependence The patient has been advised of the risks of continued smoking: stroke, [place], all forms of cancer, lung disease, and . Options for quitting smoking include: cold turkey, hypnosis, acupuncture, nicotine replacement meds(gum, lozenges, and patches), Buproprion, and Varenicline. At this time pt is encouraged to evaluate their goals for wanting to quit smoking, and reach out toprovider when ready to start this process documented in this encounterChristian HospitalXnwzfuvelo70-11-1096 Instructions* Patient Instructions* Bertha Pappas NP - 09/27/2024 5:00 PM EDT Recommend eye exam yearly Recommend dental exams twice a year Balance work/leisure activities Exercises is recommended most days of the week (appropriate as chronic conditions allow) Follow up yearly and prn documented in this encounterChristian HospitalUesabcnzjo91-10-0256 History of Present illness Narrative* Bertha Pappas NP - 08/02/2024 3:44 PM EDTAssociated Problem(s): Cervical spondylosis NSAID, MR, stretching exercises Ice Call office in 2-3 weeks if not better * eBrtha Pappas NP - 08/02/2024 3:44 PM EDTAssociated Problem(s): Tobacco dependence The patient has been advised of the risks of continued smoking: stroke, [place], all forms of cancer, lung disease, and [...] it didn't really do anything either * Bertha Pappas, DAVID - 08/02/2024 3:20 PM EDT Images from [...] of the risks of continued smoking: stroke, [place], all forms of cancer, lung disease, and . Options for quitting smoking include: cold turkey, hypnosis, acupuncture, nicotine replacement meds(gum, lozenges, and patches), Buproprion, and Varenicline. At this time pt is encouraged to evaluate their goals for wanting to quit smoking, and reach out toprovider when ready to start this process documented in this [facility]06-04-2025 Instructions* Patient Instructions* Bertha Pappas NP - 08/02/2024 3:20 PM EDT Try Naproxen (anti inflammatory) twice a day with food Tizanidine (muscle relaxer) at bedtime for sleep-may make drowsy Stretching exercises If not better in 3 weeks call off and we will order PT Check xray documented in this encounterChristian [id number] NoteOrthopedic Surgery Subjective New Patient of the Left [...] will call if he is having worsening problems.[facility] Diagnosis Cervical spondylosis- Primary Cervical spondylosis without myelopathy Tobacco dependence Tobacco use disorder documented in this encounter [facility]* Diagnosis Cervical spondylosis- Primary Cervical spondylosis without myelopathy Tobacco dependence Tobacco use disorder Cervical spondylosis Cervical spondylosis without myelopathy documented in this encounter [facility]* Diagnosis Cervical spondylosis- Primary Cervical spondylosis without myelopathy Tobacco dependence Tobacco use disorder Cervical spondylosis- Primary Cervical spondylosis without myelopathy documented in this encounter [facility] HealthcareEvaluation note* Diagnosis Cervical spondylosis- Primary Cervical spondylosis without myelopathy Tobacco dependence Tobacco use disorder Encounter for adult wellness visit- Primary Tobacco dependence Tobacco use disorder Colon cancer screening Special screening for malignant neoplasms, colon Cervical spondylosis Cervical spondylosis without myelopathy documented in this encounter [facility]Evaluation note* Diagnosis Onset Date Resolution Status Admit Date Cervical spondylosis acuteOct2024 3:22pmNicotine dependence, cigarettes, uncomplicatedacute November 29, 2024 3:22pm [facility] Work Phone: Reason for referral (narrative)No reason for referral information availableWvumedicine [facility] Hospital Work Phone: Summary Purpose Family History No Family History Records FoundNo Family History Records FoundNo Family History Records FoundNo Family History Records Found Advance Directives Advance Directive Response Recorded Date/ Time Advance Directives No February 01, 2017 3:35pm Advance Directive Response Recorded Date/ Time Advance Directives No December 29, 2024 1:24pm Chief Complaint and Reason for Visit Chief Complaint Admit Date W November 29, 2024 3: 22pm M47.812 December 21, 2024 5 :21pm Reason for Visit Admit Date Cervical spondylosis November 29, 2024 3 :22pm Nicotine dependence, cigarettes, uncompl icated November 29, 2024 3:22pm Chief Complaint Admit Date November 29, 2024 3: 22pm Chief Complaint Admit Date W November 29, 2024 3: 22pm M47.812 December 21, 2024 5 :21pm 1M January 02, 2025 3 :32pm Reason for Visit Admit Date Cervical spondylosis November 29, 2024 3 :22pm Nicotine dependence, cigarettes, uncompl icated November 29, 2024 3:22pm Cervical spondylosis January 02, 2025 3:32pm Nicotine dependence, cigarettes, uncompl icated January 02, 2025 3:32pm Additional Source Comments (unrecognized sect ion and content) No Status Records FoundNo Status Records FoundNo Status Records FoundNo Status Records Found INFORMATION SOURCE (unrecogn ized section and content) DATE CREATED AUTHOR 05/09/2022 [facility] DATE CREATED AUTHOR AUTHOR'S ORGANIZ ATION 06/24/2022 [facility] DATE CREATED AUTHOR AUTHOR'S ORGANIZ ATION 09/30/2024 [facility] DATE CREATED AUTHOR AUTHOR'S ORGANIZ ATION 12/23/2024 [facility] Care Teams (unrecognized sec tion and content) Team MemberRelationshipSpecialtyStart DateEnd Date Miguel Angel Mccall MD [address] [place] [address] PCP - GeneralFamily Medicine04/21/23Team MemberRelationshipSpecialtyStart DateEnd Date Miguel Angel Mccall MD [address] [place] [address] PCP - GeneralFamily Medicine04/21/23Team MemberRelationshipSpecialtyStart DateEnd Date Miguel Angel Mccall MD [address] [place] [address] PCP - Generalmily Medicine04/21/23Team MemberRelationshipSpecialtyStart DateEnd Date Miguel Angel Mccall MD [address] [place] [address] PCP - Generalmily Medicine04/21/23Team MemberRelationshipSpecialtyStart DateEnd Date Miguel Angel Mccall MD [address] [place] [address] PCP - Generalmily Medicine04/21/23Team MemberRelationshipSpecialtyStart DateEnd Date Miguel Angel Mccall MD [address] [place] [address] PCP - GeneralFamily Medicine04/21/23Team MemberRelationshipSpecialtyStart DateEnd Date Miguel Angel Mccall MD [address] [place] [address] PCP - [facility]04/21/23 Team Status: Active Member Role Status Dates Bertha Pappas WAGE AND HOUR INVESTIGATOR-C Primary Care Provider Active Team Status: Inactive Member Role Status Dates Bertha Pappas , WAGE AND HOUR INVESTIGATOR-C Primary Care Provider Active Start: November 29, 2024 End: November 29, 2024Bertha Pappas , WAGE AND HOUR INVESTIGATOR-CAttending ProviderActiveStart: November 29, 2024 End: November 29, 2024 Team Status: Active Member Role/Relationship Status Dates Bertha Pappas WAGE AND HOUR INVESTIGATOR-C Primary Care Provider Active Team Status: Inactive Member Role/Relationship Status Dates Bertha Pappas WAGE AND HOUR INVESTIGATOR-C Primary Care Provider Active Start: November 29, 2024 End: November 29, 2024Bertha Pappas , WAGE AND HOUR INVESTIGATOR-CAttending ProviderActiveStart: November 29, 2024 End: November 29, 2024 Team Status: Inactive Member Role/Relationship Status Dates Bertha Pappas WAGE AND HOUR INVESTIGATOR-C Primary Care Provider Active Start: December 21, 2024 End: December 21, 2024Bertha Pappas , WAGE AND HOUR INVESTIGATOR-CAttending ProviderActiveStart: December 21, 2024 End: December 21, 2024 Team Status: Inactive Member Role/Relationship Status Dates Bertha Pappas , WAGE AND HOUR INVESTIGATOR-C Primary Care Provider Active Start: January 02, 2025 End: January 02, 2025Bertha Pappas , WAGE AND HOUR INVESTIGATOR-CAttending ProviderActiveStart: January 02, 2025 End: January 02, 2025 Reason for Visit (unrecogniz ed section and content) ReasonCommentsBack PainReasonCommentsMed RefillReasonCommentsAnnual Exam Goals (unrecognized section and content) Goals may be documented in a n alternate sectionGoals may be documented in an alternate sectionGoals may be documented in an alternate section FOR RECORDS PERTAINING TO PATIENTS WHO ARE [...] BE BASED ON THE PRIMARY CLINICAL RECORDS. [facility]. provides no warranty or guarantee of the accuracy or completeness of information in this document.
== END 2025-02-08 13:56 | disposition home or self-care (01) ==
LOC: PM 13:56
PROVIDERS: PCP Family Medicine; Visit Provider Nurse Practitioner
DX: M47.812 Spondylosis without myelopathy or radiculopathy, cervical region (principal); M50.30 Other cervical disc degeneration, unspecified cervical region
CPT/HCPCS: G0463

== ENCOUNTER 2025-02-19 09:19 | Day surgery (SDC) | payer OTHER, SELFPAY ==
--- OUTSIDE RECORDS SUMMARY | 2025-02-19 09:23 | XMS_ITS | Clinical Summary ---
Author Organization [facility] Address [address] [place] [address] Care Team Providers Care Nutrition Professor Name Role Phone Miguel Angel Hernandez MD Primary Care Provider [phone] Allergies No known active allergies Medications MedicationSigDispense QuantityRefillsLast FilledStart DateEnd DateStatus valACYclovir (Valtrex) 500 MG tablet Take 500 mg by mouth in the morning.06/22/2012ctive Active Problems ProblemNoted DateDiagnosed DateEncounter for adult wellness visit09/27/2024 Assessment & Plan (09/27/2024 7:16 AM EDT): Reviewed Ht/Wt/BMI Recommend eye exam yearly Recommend dental exams twice a year Balance work/leisure activities Exercises is recommended most days of the week (appropriate as chronic conditions allow) Follow up yearly and prn Colon cancer gxepykhpv68/30/2025 Assessment & Plan (09/27/2024 5:14 PM EDT): Colon cancer screening options were discussed with patient, as well as why colon cancer screening is indicated. Options are Colonoscopy: direct visualization, every 10 years (unless indicated more frequently), risks and benefits were discussed Cologuard: every 3 years, risks and benefits were discussed , contraindications were discussed (family hx of colon cancer, colon polyps) Patient has elected to: cologaurd Cervical iwfzpkezeip58/04/2025 Assessment & Plan (09/27/2024 5:28 PM EDT): Cont PT Reviewed XR order as well Assessment & Plan (08/02/2024 3:44 PM EDT): NSAID, MR, stretching exercises Ice Call office in 2-3 weeks if not better Vitamin D tebgflduju45/04/2025Herpes simplex infection of genitourinary system 08/02/2024Tobacco kvekrwesff09/04/2025 Assessment & Plan (09/27/2024 7:15 AM EDT): The patient has been advised of the risks of continued smoking: stroke, [place], all forms of cancer, lung disease, and . Options for quitting smoking include: cold turkey, hypnosis, acupuncture, nicotine replacement meds(gum, lozenges, and patches), Buproprion, and Varenicline. At this time pt is encouraged to evaluate their goals for wanting to quit smoking, and reach out toprovider when ready to start this process Assessment & Plan (08/02/2024 3:44 PM EDT): The patient has been advised of the risks of continued smoking: stroke, [place], all forms of cancer, lung disease, and . Options for quitting smoking include: cold turkey, hypnosis, acupuncture, nicotine replacement meds(gum, lozenges, and patches), Buproprion, and Varenicline. At this time pt is encouraged to evaluate their goals for wanting to quit smoking, and reach out toprovider when ready to start this process Family History Medical HistoryRelationNameCommentsDiabetesFatherJoRockville General Hospital JrRelationNameStatus CommentsFatherStanton County Health Care Facility JrAliveMotherAlive Social History Tobacco UseTypesPacks/DayYears UsedDateSmoking Tobacco: Every MdpLrrckjtxsr409.7 Started: 06/18/1997Smokeless Tobacco: NeverAlcohol UseStandard Drinks/Week CommentsYes1 (1 standard drink = 0.6 oz pure alcohol)Sex and Gender Information ValueDate RecordedSex Assigned at BirthNot on fileLegal WslRsbb8105/13/2022 8:23 PM EDTGender IdentityNot on fileSexual OrientationNot on file Last Filed Vital Signs Vital SignReadingTime TakenCommentsBlood Cwchfsri002/6807 5:02 PM EDT Fyipn8789/ 5:02 PM KCNRnujjhjkruk00.9 ??C (98.5 ??F)09/27/2024 5:02 PM EDTRespiratory Xksm113309/27/2024 5:02 PM EDTOxygen Lepbyblbts12%09/27/2024 5:02 PM EDTInhaled Oxygen Concentration--Xumyha73.8 kg (138 lb 6.4 oz)09/27/2024 5:02 PM YHDEzwnhp585.7 cm (5' 8 )01/05/2023 1:50 PM ESTBody Mass Index21.04103/07/2022 1:50 PM EST Plan of [place] [id number] Care Teams Team MemberRelationshipSpecialtyStart DateEnd Date Miguel Angel Hernandez MD PCP - GeneralFamily Medicine04/21/23
--- OUTSIDE RECORDS SUMMARY | 2025-02-19 09:23 | XMS_ITS | Clinical Summary ---
Author Organization [facility] Address [address] [place] [address] Care Team Providers Care Customer Assistance Representative Name Role Phone Miguel Angel Hernandez MD Primary Care Provider [phone] Allergies No known active allergies Medications MedicationSigDispense QuantityRefillsLast FilledStart DateEnd DateStatus baclofen (Lioresal) 20 mg tablet Active valACYclovir (Valtrex) 500 mg tablet Take 500 mg by mouth in the morning.05/08/2022ctive Active Problems No known active problems Social History Tobacco UseTypesPacks/DayYears UsedDateSmoking Tobacco: Every NmgRsqvunpqim716.6 Started: 06/29/1997Smokeless Tobacco: NeverAlcohol UseStandard Drinks/Week CommentsYes2 (1 standard drink = 0.6 oz pure alcohol)IA Safety & Environment AnswerDate RecordedFear of Current or Ex-PartnerNot on file04/22/2023Emotionally AbusedNot on file04/22/2023hysically AbusedNot on file04/22/2023Sexually Abused Not on file04/22/2023hysically or Sexually AbusedNot on file04/22/2023Sex and Gender InformationValueDate RecordedSex Assigned at BirthNot on fileLegal Sex Male05/06/2022 2:05 PM ESTGender IdentityNot on fileSexual OrientationNot on file Last Filed Vital Signs Vital SignReadingTime TakenCommentsBlood Pressure--Pulse--Temperature-- Respiratory Rate--Oxygen Saturation--Inhaled Oxygen Concentration--Cuajkg89.5 kg (140 lb)06/23/2022 9:34 AM GADVsqkhs983.7 cm (5' 8 )06/23/2022 9:34 AM EDTBody Mass Index21.29006/23/2022 9:34 AM EDT Plan of Treatment Health MaintenanceDue DateLast DoneCommentsCT Mvugelwpwurp80/10/1980Colonoscopy 1979Colorectal Cancer Ahaxrlekn77/10/1980FIT-DNA1979FIT1979 FOBT06/09/19790671Syletxyuibwxi90/10/1980Depression Evqfikvyp65/10/1992Hepatitis B Vaccines (1 of 3 - 19+ 3-dose series)06/08/1998Pneumococcal Vaccine: Pediatrics (0 to 5 Years) and At-Risk Patients (6 to 64 Years) (1 of 2 - PCV)06/08/1998 Adult Wyfixcq0606/08/2001HPV Vaccines (1 - 3-dose SCDM series)06/08/2006COVID-19 Vaccine (1 - 2024- season)2024Influenza Vaccine (#1) Zoster Vaccines (1 of 2)06/08/2029HIB VaccinesAged OutNo longer eligible based on patient's age to complete this topicIPV VaccinesAged OutNo longer eligible based on patient's age to complete this topicMeningococcal B VaccineAged OutNo longer eligible based on patient's age to complete this topicMeningococcal VaccineAged OutNo longer eligible based on patient's age to complete this topic Rotavirus VaccinesAged OutNo longer eligible based on patient's age to complete this topic Insurance Care Teams Team MemberRelationshipSpecialtyStart DateEnd Date Miguel Angel Hernandez MD [address] [place] [address] PCP - General06/18/22
[2025-02-19 09:36] VITALS: BP 101/78; PULSE 64; TEMP 37; O2SAT 99
[2025-02-19 10:10] VITALS: BP 105/60; BP 110/64; PULSE 34; PULSE 36; O2SAT 98; O2SAT 99
[2025-02-19] MEDS: BUPIVACAINE HCL 0.25% PF 25 MG/10 ML VIAL 6 ML INJ (10:11)
[2025-02-19] MEDS: LIDOCAINE HCL 2% 400 MG/20 ML MDV INJ (10:12)
--- NOTE | 2025-02-19 10:16 | W.PM.PROCNOT ---
Date of procedure: 02/19/25 Pre-op diagnosis: Pain due to cervical spondylosis without myelopathy Post-op diagnosis: same as pre-op Procedure: Procedure: Bilateral C5-6, 6-7 medial branch block Medications: Bupivacaine 0.25% 6cc The patient was seen and examined in the preoperative holding area.? The informed consent was obtained and placed on the chart.? The patient was brought to the medical procedure unit and placed in the prone position.? A timeout was completed verifying correct patient, procedure site, positioning, plan, and special equipment.? Using aseptic technique, the needle was placed at left C5.? Under direct fluoroscopic visualization, a Quincke tip needle was advanced to the midpoint of the waist of the articular pillar at the respective medial branch segment. The above-mentioned injectate was placed in a 1 mL aliquot proceeded by negative aspiration.? The needle was removed.? The procedure was completed at all left C6, 7. The same procedure, at the same levels, was then completed on the right side. Insertion site was covered.? Patient was taken to the postprocedural recovery area and monitored for an appropriate length of time before found suitable for discharge in the accompaniment of a responsible adult. Anesthesia: Local Surgeon: Jasper Elliott Pathology: none sent Condition: stable Disposition: no change
== END 2025-02-19 10:18 | disposition home or self-care (01) ==
PROVIDERS: PCP Family Medicine; Visit Provider Anesthesiology
DX: M47.812 Spondylosis without myelopathy or radiculopathy, cervical region (principal); G89.29 Other chronic pain
CPT/HCPCS: 64490; 64491; J0665

== ENCOUNTER 2025-02-28 09:36 | Outpatient (OUT) | payer OTHER, SELFPAY ==
--- OUTSIDE RECORDS SUMMARY | 2025-02-28 09:40 | XMS_ITS | Clinical Summary ---
Author Organization [facility] Address [address] [place] [address] Care Team Providers Care Candle Molder Machine Name Role Phone Miguel Angel Hernandez MD Primary Care Provider [phone] Allergies No known active allergies Medications MedicationSigDispense [...] Follow up yearly and prn Colon cancer yfhjgupos27/30/2025 Assessment & Plan (09/27/2024 5:14 PM EDT): [...] polyps) Patient has elected to: cologaurd Cervical duhkudkqmgi67/04/2025 Assessment & Plan (09/27/2024 5:28 PM EDT): Cont PT Reviewed XR order as well Assessment & Plan (08/02/2024 3:44 PM EDT): NSAID, MR, stretching exercises Ice Call office in 2-3 weeks if not better Vitamin D qmfqydkmrw37/04/2025Herpes simplex infection of genitourinary system 08/02/2024Tobacco qhoxlpnszq16/04/2025 Assessment & Plan (09/27/2024 7:15 AM EDT): The patient has been advised of the risks of continued smoking: stroke, [place], all forms of cancer, lung disease, and [...] of the risks of continued smoking: stroke, [place], all forms of cancer, lung disease, and . Options for quitting smoking include: cold turkey, hypnosis, acupuncture, nicotine replacement meds(gum, lozenges, and patches), Buproprion, and Varenicline. At this time pt is encouraged to evaluate their goals for wanting to quit smoking, and reach out toprovider when ready to start this process Family History Medical HistoryRelationNameCommentsDiabetesFatherJoVeterans Administration Medical Center JrRelationNameStatus CommentsFatherDecatur Health Systems JrAliveMotherAlive Social History Tobacco UseTypesPacks/DayYears UsedDateSmoking Tobacco: Every EltPqpqplkdka094.7 Started: 06/18/1997Smokeless Tobacco: NeverAlcohol UseStandard Drinks/Week CommentsYes1 (1 standard drink = 0.6 oz pure alcohol)Sex and Gender Information ValueDate RecordedSex Assigned at BirthNot on fileLegal StsGlox0105/13/2022 8:23 PM EDTGender IdentityNot on fileSexual OrientationNot on file Last Filed Vital Signs Vital SignReadingTime TakenCommentsBlood Fwmkgwcj627/6807 5:02 PM EDT Gosxq5774/ 5:02 PM NOVMiehtlkffor60.9 ??C (98.5 ??F)09/27/2024 5:02 PM EDTRespiratory Ksxt956509/27/2024 5:02 PM EDTOxygen Iyaortmjis18%09/27/2024 5:02 PM EDTInhaled Oxygen Concentration--Banfpi79.8 kg (138 lb 6.4 oz)09/27/2024 5:02 PM FPPJyedvn141.7 cm (5' 8 )01/05/2023 1:50 PM ESTBody Mass Index21.04103/07/2022 1:50 PM EST Plan of Treatment Not on file Insurance Care Teams Team MemberRelationshipSpecialtyStart DateEnd Date Miguel Angel Hernandez MD PCP - GeneralFamily Medicine04/21/23
--- OUTSIDE RECORDS SUMMARY | 2025-02-28 09:40 | XMS_ITS | Clinical Summary ---
Author Organization [facility] Address [address] [place] [address] Care Team Providers Care Security Risk Analyst Name Role Phone Miguel Angel Hernandez MD Primary Care Provider [phone] Allergies No known active allergies Medications MedicationSigDispense QuantityRefillsLast FilledStart DateEnd DateStatus baclofen (Lioresal) 20 mg tablet Active valACYclovir (Valtrex) 500 mg tablet Take 500 mg by mouth in the morning.05/08/2022ctive Active Problems No known active problems Social History Tobacco UseTypesPacks/DayYears UsedDateSmoking Tobacco: Every IauZflaehsoqs494.7 Started: 06/29/1997Smokeless Tobacco: NeverAlcohol UseStandard Drinks/Week CommentsYes2 (1 standard drink = 0.6 oz pure alcohol)AR Safety & Environment AnswerDate RecordedFear of Current or Ex-PartnerNot on file04/22/2023Emotionally AbusedNot on file04/22/2023hysically AbusedNot on file04/22/2023Sexually Abused Not on file04/22/2023hysically or Sexually AbusedNot on file04/22/2023Sex and Gender InformationValueDate RecordedSex Assigned at BirthNot on fileLegal Sex Male05/06/2022 2:05 PM ESTGender IdentityNot on fileSexual OrientationNot on file Last Filed Vital Signs Vital SignReadingTime TakenCommentsBlood Pressure--Pulse--Temperature-- Respiratory Rate--Oxygen Saturation--Inhaled Oxygen Concentration--Snxxvo25.5 kg (140 lb)06/23/2022 9:34 AM CLKFwhgsh186.7 cm (5' 8 )06/23/2022 9:34 AM EDTBody Mass Index21.29006/23/2022 9:34 AM EDT Plan of Treatment Health MaintenanceDue DateLast DoneCommentsCT Meqlegwohusd95/10/1980Colonoscopy 1979Colorectal Cancer Falqdsjpw24/10/1980FIT-DNA1979FIT1979 FOBT06/09/19792944Eneyuicalxtzn81/10/1980Depression Ifdtzxtle98/10/1992Hepatitis B Vaccines (1 of 3 - 19+ 3-dose series)06/08/1998Pneumococcal Vaccine: Pediatrics (0 to 5 Years) and At-Risk Patients (6 to 64 Years) (1 of 2 - PCV)06/08/1998 Adult Ijuettc3006/08/2001HPV Vaccines (1 - 3-dose SCDM series)06/08/2006COVID-19 Vaccine [...] patient's age to complete [place] [id number] Care Teams Team MemberRelationshipSpecialtyStart DateEnd Date Miguel Angel Hernandez MD [address] [place] [address] PCP - General06/18/22
--- OUTSIDE RECORDS SUMMARY | 2025-02-28 09:42 | XMS_ITS | CCD ---
Author Organization [facility] Care Team Providers Care Almond Blancher Operator Name Role Phone DR MIGUEL ANGEL MCCALL [...] Attending Unavailable BERTHA PAPPAS Attending Unavailable Mian FERRY TERMINAL SUPERVISOR-C, Bertha Weber Primary Care Provider Mian FERRY TERMINAL SUPERVISOR-C, Bertha Weber Attending Provider [phone] Bertha Pappas Attending Unavailable Bertha Pappas Primary Care Unavailable Bertha Pappas Admitting Unavailable Mian FERRY TERMINAL SUPERVISOR-C, Bertha Weber Primary Care Provider Mian FERRY TERMINAL SUPERVISOR-C, Bertha Weber Attending Provider [phone] Medications Current Medications MedicationDrug Class(es)DatesSig (Normalized)Sig (Original)naproxen 500 mg oral tablet (9 sources)Nonsteroidal Anti-inflammatory DrugStart: 08-02-2024 End: 11-52-5783dsow 1 tablet by mouth in the morningnaproxen [...] Zoster Virus Nucleoside Analog DNA Polymerase InhibitorStart: 79-26-6914oqei 1 tablet by mouth once dailyStart: 70-75-4468qrox 1 tablet by mouth in the morning valACYclovir (Valtrex) 500 MG tablet Take 500 mg by mouth in the morning. 06/22/2012 Active Completed/Discontinued Medications MedicationDrug Class(es)DatesSig (Normalized)Sig (Original)Baclofen 10 MG pack (3 sources)Start: 01-06-2019 End: 72-82-3907Xcizteej 10 MG pack 01/06/2019 08/02/2024 Discontinued (Therapy completed)Start: 86-18-7991Gvoftsxa 10 MG pack 01/06/2019 ActivetiZANidine 4 mg oral tablet (8 sources)Central alpha-2 Adrenergic AgonistStart: 08-02-2024 End: 06-60-7045wjMGSozgud (Zanaflex) 4 MG tablet Indications: Cervical spondylosis Take 1 tablet (4 mg) by mouth as needed at bedtime for muscle spasms for up to 20 days 20 tablet 08/02/2024 09/27/2024 Discontinued(Therapy completed) Problems Active Problems Problem ClassificationProblemDateDocumented DateEpisodic/ChronicNutritional deficiencies (13 sources)Vitamin D deficiency; Translations: [Vitamin D deficiency, unspecified]Onset: 907046-30-2044WxcqvmrCnzia connective tissue disease (6 sources)Pain in left hand; Translations: [PAIN IN LEFT HAND]Onset: 05-05-2022 EpisodicOther screening for suspected conditions (not mental disorders or infectious disease) (6 sources)Patient encounter status; Translations: [Encounter for screening for malignant neoplasm of colon]Onset: 111019-16-2322ObveaezjOprvdeqqdbe; intervertebral disc disorders; other back problems (20 sources)Cervical spondylosis; Translations: [Spondylosis without myelopathy or radiculopathy, cervical region]Onset: 195675-16-6795YaowhdrFvkfsihunxh; intervertebral disc disorders; other back problems (1 source)Stenosis of intervertebral foramina; Translations: [Spinal stenosis, cervical region]81-56-1309JtvpbhacTiwgtqdek-related disorders (20 sources)Tobacco dependence syndrome; Translations: [Nicotine dependence, unspecified, uncomplicated]Onset: 303973-32-8079QlmzruaQdkiwtbdwhov (3 sources)CONTACT W/AND (SUSP) EXPOS COVID-19; Translations: [CONTACT W/AND (SUSP) EXPOS COVID-19]Onset: 26-74-9461Ivrbo infection (13 sources)Herpes simplex; 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, unspecified]Onset: 663560-64-8874Yaqhiwf Past or Other Problems Problem ClassificationProblemDateDocumented DateEpisodic/ChronicUnclassified (1 source)CONTACT W/AND (SUSP) EXPOS COVID-19; Translations: [CONTACT W/AND (SUSP) EXPOS COVID-19]Onset: 10-21-2021 Results Test NameValueInterpretationReference RangeFacilityMagnetic resonance imaging reportOrdered By: Scott Mohan on 06-50-4289Mbmle reportSELECT [facility]ICAL [facility] [place] [address] MRI Report Signed Patient: Eduardo Pham III MR#: [id number] : 1980 Acct:[id number] Age/Sex: 44 / M ADM Date: 5 Loc: MR Room: Type: [facility] Attending Dr: Bertha FIELDS Copies to: DONNIE Herrera~ Ordering Provider: DONNIE Herrera Date of Service: 12/21/24 MR/MR cervical spine wo con: M47.812 - Spondylosis without myelopathy orradiculopathy... ([id number]) XR/XR pre/post mri xray: PRE EXAMINATION: MRI OF THE CERVICAL SPINE WITHOUT CONTRAST /X-RAY CERVICAL SPINE, 3 VIEWS CLINICAL DATA: Spondylosis of the cervical spine without myelopathy or radiculopathy. COMPARISON: None TECHNIQUE: Multiecho imaging was performed in the sagittal and axial plane without contrast administration. FINDINGS: X-ray cervical spine: Straightening. Bcgv-hc-hktsiypa degenerative changes C5-C6 no fracture or malalignment.. [...] Mohan M.D. 12/21/2024 8:23 PM Dictation Location: [place] [address] Transcribed By: [facility] 12/21/242022 Dictated By: Scott Mohan MD 12/21/242016 Signed By: 12/21/242022 [facility] Work Phone: xr pre/post mri xrayon 01-71-0147HX pre/post mri xray [facility] Main [place] [address] [place] [address] MRI Report Signed Patient: Eduardo Pham III MR#: [id number] : 1980 Acct:[id number] Age/Sex: 44 / M ADM Date: 12/21/24 Loc: MR Room: Type: [facility] Attending Dr: Bertha FIELDS Copies to: DONNIE Herrera Ordering Provider: DONNIE Herrera Date of Service: 12/21/24 MR/MR cervical spine wo con: M47.812 - Spondylosis without myelopathy or radiculopathy... ([id number]) XR/XR pre/post mri xray: PRE EXAMINATION: MRI OF THE CERVICAL SPINE WITHOUT CONTRAST /X-RAY CERVICAL SPINE, 3 VIEWS CLINICAL DATA: Spondylosis of the cervical spine without myelopathy or radiculopathy. COMPARISON: None TECHNIQUE: Multiecho imaging was performed in the sagittal and axial plane without contrast administration. FINDINGS: X-ray cervical spine: Straightening. Qrrh-qd-hhrseckt degenerative changes C5-C6 no fracture or malalignment.. [...] Mohan M.D. 12/21/2024 8:23 PM Dictation Location: [place] [address] Transcribed By: [facility] 12/21/242022 Dictated By: Scott Mohan MD 12/21/242016 Signed By: 12/21/242022[facility] Physician GroupALL CBC WITH AUTO DIFFon 33-25-0344SIQTZDCFF ABSOLUTE AUTO0.1NOMS HealthcareBasophils/100 WBC (Bld)1.1 % 0.2 - 2.0 %NOMS HealthcareEosinophils/100 WBC (Bld)3.2 %0.9 - 7.0 %NOMSaint Mary'S Health CenterErythrocyte distribution width (RBC) [Ratio]11.6 %11.0 - 15.0 %[facility] Memorial HospitalHematocrit (Bld) [Volume fraction]42.4 %42.0 - 54.0 %[facility] Hemoglobin (Bld) [Mass/Vol]14.6 g/dL14.0 - 18.0 g/dLSaint Joseph Hospital of KirkwoodIMMATURE GRANULOCYTES ABS AUTO0.02NOUniversity of Missouri Health CareImmature granulocytes/100 WBC (Bld)0.3 % 0.0 - 0.5 %[facility] KirkwoodInterpretation and review of laboratory results AbnormalNOUniversity of Missouri Health CareLYMPHOCYTES ABSOLUTE AUTO3.1[facility] Lymphocytes/100 WBC (Bld)40.6 %20.5 - 60.0 %[facility] HospitalH (RBC) [Entitic mass]32.2 pg25.9 - 34.0 pgNOMercy McCune-Brooks HospitalHC (RBC) [Mass/Vol]34.4 g/dL29.9 - 35.2 g/dLBarnes-Jewish Saint Peters HospitalV (RBC) [Entitic vol]93.4 fL80.0 - 94.0 fLSaint Joseph Hospital of KirkwoodMONOCYTES ABSOLUTE AUTO0.6NOUniversity of Missouri Health CareMonocytes/100 WBC (Bld)8.4 % 1.7 - 12.0 %NOMSaint Mary'S Health CenterNEUTROPHILS ABSOLUTE AUTO3.5[facility] Neutrophils/100 WBC (Bld)46.4 %43.0 - 75.0 %NOMSaint Mary'S Health CenterPlatelet mean volume (Bld) [Entitic vol]10.5 fL9.5 - 13.5 fLNOUniversity of Missouri Health CareTBH EO #0.2[facility] TBH HEK762ZWNZ [facility] RBC4.54LowNOMS Community Memorial HospitalTB WBC7.6[facility] CLINISYNCNOME HealthcareXR CERVICAL SPINE 2-3Von 05-32-8431[address] [address] XRay Report Signed Patient: EDUARDO PHAM III MR#: [id number] : 1980 Acct:[id number] Age/Sex: 44 / M ADM Date: 08/03/24 Loc: JHONNY Attending Dr: Bertha Pappas NP Ordering Physician: Bertha Pappas NP Date of Service: 08/03/24 Procedure(s): XR cervical spine 2-3V Accession Number(s): [id number] cc: Bertha Pappas FERRY TERMINAL SUPERVISOR; Miguel Angel Mccall M.D. The [address] [address] Patient Name: EDUARDO PHAM MRN: [id number] date: 1980 Sex: M Assigned Patient Location: [facility] Current Patient Location: [facility] [facility] [facility] Accession/Order Number: [id number] Exam Date: 08/03/2024 15:49 Report Date: 08/03/2024 [...] Owens M.D. 08/03/2024 3:51 PM Dictation Location: [place] [address] Electronically authenticated by: [id number] Y Date: 08/03/2024 15:51 Dictated By: Sivakumar Owens D.O. Signed By: 08/03/24 1553 DD/ 155 TD/TT: Business Quality Assurance Analyst:GRACYadiologjaycee, Radiologist, - 08/03/2024 The [place] [id number] XRay Report Signed Patient: EDUARDO PHAM III MR#: [id number] : 1980 Acct:[id number] Age/Sex: 44 / M ADM Date: 08/03/24 Loc: RAD Attending Dr: Bertha Pappas NP Ordering Physician: Bertha Pappas NP Date of Service: 08/03/24 Procedure(s): XR cervical spine 2-3V Accession Number(s): [id number] cc: Bertha Pappas FERRY TERMINAL SUPERVISOR; Miguel Angel Mccall M.D. [address] [address] Patient Name: EDUARDO PHAM MRN: [id number] date: 1980 Sex: M Assigned Patient Location: [facility] Current Patient Location: [facility] Accession/Order Number: [id number] Exam Date: 08/03/2024 15:49 Report Date: 08/03/2024 [...] Owens M.D. 08/03/2024 3:51 PM Dictation Location: [place] [address] Electronically authenticated by: [id number] Y Date: 08/03/2024 15:51 Dictated By: Sivakumar Owens D.O. Signed By: 08/03/24 155 DD/ 50 TD/TT: Business Quality Assurance Analyst: SAMANTHA HealthcareRadiology Study observation (narrative)NOMS HealthcareXR CERVICAL SPINE 2-3VOrdered By: Radiologist Radiology on 53-71-7803[facility] Work Phone: Office Visiton 29-92-7155Xrwcob-up [id number] Eduardo Pham 1980 M Date Provider Department Center 06/23/2022 [facility] MP ORTHO MPORTHO No family history on file Level of Service:09161 [place] OFFICE/OUTPATIENT NEW LOW MDM 30-44 MINUTES Reason for Visit and Comments: New Patient [632][facility] CenterMRI [facility] LT WO CONon 18-38-1559BDN HAND LT WO CONEXAM: MRI HAND LT WO CON HISTORY: Pain of left hand COMPARISON: None. TECHNIQUE: Multiplanar, multi sequential MRI sequences were performed head FINDINGS: This study is degraded secondary to rwgbi-vs-feps and isocenter of the study. Tenosynovitis of [...] Electronically authenticated by: AMBROSIO CORMIER Date: 2022-05-05 16:32NoWyandot Memorial HospitalCovid-19 PCR (CVDTBH)on 38-75-6956PNRK-CoV-2 (COVID-19) RNA KARENA+probe Ql (Unsp spec)Not detectedNormalNOT DETECTEDThe [facility] Comment on above:Result Comment: This test is not yet approved or cleared by the [place] FDA. When there are no FDA-approved or cleared tests available, and other criteria are met, FDA can make tests available under an emergency access mechanism called an Emergency Use Authorization (EUA). The EUA for this test is supported by the [place] of Health and Human Service's (HHS's) declaration [...] consistent with SARS-CoV-2.Performed By: #### CVDTBH #### [facility] [address] [place] [address] Dr. Kathryn Garcia Vital Signs Date TimeVital SignValuePerforming XypqzodwzCdulqbht65-40-7404 15:44-0500Body qtxdue640.72 cmLisa Aichholz FERRY TERMINAL SUPERVISOR-C Work Phone: [phone]11-04-2025 15:44-0500 Body mass index (BMI) [Ratio]20.9 kg/m2Lisa Aichholz FERRY TERMINAL SUPERVISOR-C Work Phone: [phone] [place], [place] 3307111-04-2025 15:44-0500 Body klhuegvmqbf09.4 [degF]Bertha Aichholz FERRY TERMINAL SUPERVISOR-C Work Phone: [phone]11-04-2025 15:44-0500 Body lvolxl84.65 kgLisa Aichholz FERRY TERMINAL SUPERVISOR-C Work Phone: [phone] [place], [place] 3307111-04-2025 15:44-0500 Diastolic blood sfvphxju82 mm[Hg]Bertha Aichholz FERRY TERMINAL SUPERVISOR-C Work Phone: [phone] [place], [place] 3307111-04-2025 15:44-0500 Heart rate65 /minLisa Aichholz FERRY TERMINAL SUPERVISOR-C Work Phone: [phone]11-04-2025 15:44-0500 Respiratory rate16 /minLisa Aichholz FERRY TERMINAL SUPERVISOR-C Work Phone: [phone] [place], [place] 3307111-04-2025 15:44-0500 SaO2% (BldA) [Mass fraction]98 %Bertha Aichholz FERRY TERMINAL SUPERVISOR-C Work Phone: [phone]11-04-2025 15:44-0500 Systolic blood xtbnqnyo908 mm[Hg]Bertha Aichholz FERRY TERMINAL SUPERVISOR-C Work Phone: [phone]10-01-2025 15:51-0400 Body qwfjqu764.72 cmLisa Aichholz FERRY TERMINAL SUPERVISOR-C Work Phone: [phone]10-01-2025 15:51-0400 Body mass index (BMI) [Ratio]20.4 kg/m2Lisa Aichholz FERRY TERMINAL SUPERVISOR-C Work Phone: [phone]10-01-2025 15:51-0400 Body iglchqdsnif00.8 [degF]Bertha Aichholz FERRY TERMINAL SUPERVISOR-C Work Phone: [phone] [place], [place] 8001310-01-2025 15:51-0400 Body fvxhpe34 kgLisa Aichholz FERRY TERMINAL SUPERVISOR-C Work Phone: [phone] [place], [place] 8001310-01-2025 15:51-0400 Diastolic blood vjyzryhu47 mm[Hg]Bertha Aichholz FERRY TERMINAL SUPERVISOR-C Work Phone: [phone]10-01-2025 15:51-0400 Heart rate64 /minLisa Aichholz FERRY TERMINAL SUPERVISOR-C Work Phone: [phone]10-01-2025 15:51-0400 Respiratory rate16 /minLisa Aichholz FERRY TERMINAL SUPERVISOR-C Work Phone: [phone]10-01-2025 15:51-0400 SaO2% (BldA) [Mass fraction]97 %Bertha Aichholz FERRY TERMINAL SUPERVISOR-C Work Phone: [phone]10-01-2025 15:51-0400 Systolic blood vygoeyjg059 mm[Hg]Bertha Aichholz FERRY TERMINAL SUPERVISOR-C Work Phone: [facility]07-30-2025 17:02-0400 Body mass index (BMI) [Ratio]21.04 kg/m2Lisa Keyshawnz FERRY TERMINAL SUPERVISOR Work Phone: [facility] KirkwoodNvjltnjydi15-70-5754 17:02-0400Body temperature 98.49 [degF]Bertha Kaylierajni FERRY TERMINAL SUPERVISOR Work Phone: [facility] KirkwoodAjpwyvocqq68-50-2494 17:02-0400Body vhijvw01.78 kgLisa Jaseholz FERRY TERMINAL SUPERVISOR Work Phone: [facility] KirkwoodQthwcgypgz94-27-1258 17:02-0400Diastolic blood mm[Hg]Bertha Lottrajni FERRY TERMINAL SUPERVISOR Work Phone: [facility] KirkwoodGkvfvogoww25-74-7174 17:02-0400Heart rate63 /min Bertha Kaylierajni FERRY TERMINAL SUPERVISOR Work Phone: [facility] KirkwoodCztfpxnzgq07-46-3291 17:02-0400Respiratory rate18 /minLisa Jaseholz FERRY TERMINAL SUPERVISOR Work Phone: [facility] KirkwoodUpdmuzxfzz01-70-3347 17:02-3742UhE7% (BldA) [Mass fraction]98 %Bertha Lagunameghana FERRY TERMINAL SUPERVISOR Work Phone: [facility] KirkwoodNudgjsekoe50-60-7349 17:02-0400Systolic blood mm[Hg]Bertha Lagunameghana FERRY TERMINAL SUPERVISOR Work Phone: [facility] KirkwoodRybnlihjcw24-53-3239 15:16-0400Body mass index (BMI) [Ratio]20.8 kg/m2Lisa Jaseholz FERRY TERMINAL SUPERVISOR Work Phone: [facility] KirkwoodOzqujsizvz44-79-1061 15:16-0400Body temperature 98.4 [degF]Bertha Kayliesheebaz FERRY TERMINAL SUPERVISOR Work Phone: [facility] KirkwoodDzmdsmvwfb36-33-2156 15:16-0400Body jywils71.05 kgLisa Kaylieteraholz FERRY TERMINAL SUPERVISOR Work Phone: [facility] KirkwoodZpvjzdlubj73-40-1775 15:16-0400Diastolic blood zpilmquo10 mm[Hg]Bertha Mian FERRY TERMINAL SUPERVISOR Work Phone: noUniversity of [facility] Health CareEmmpffmrso70-01-8649 15:16-0400Heart rate61 /min Bertha Lagunabillyz FERRY TERMINAL SUPERVISOR Work Phone: noUniversity of [facility] Health CareGarsrhnfnk78-01-3121 15:16-0400Respiratory rate16 /minLi Mian FERRY TERMINAL SUPERVISOR Work Phone: [facility] KirkwoodBdgimspnig43-66-9987 15:16-7214WoX6% (BldA) [Mass fraction]96 %Bertha Lagunabillyz FERRY TERMINAL SUPERVISOR Work Phone: noUniversity of Missouri Health CareCdthcllgry01-26-9738 15:16-0400Systolic blood jguofgaa278 mm[Hg]Bertha Kaylieterabillyz FERRY TERMINAL SUPERVISOR Work Phone: no[facility] Encounters Encounter DateEncounter TypeCare ProviderFacilityStart: 01-02-2025 End: 97-74-8911kaivcuppwkLviw J Aichholz FERRY TERMINAL SUPERVISOR-C Work Phone: -[facility] ClydeStart: 01-02-2025 End: 51-94-2659Lyyjdub encounter procedureLisa Gus Pappas FERRY TERMINAL SUPERVISOR-C-[facility] Work Phone: Start: 12-21-2024 End: 38-97-0415Bsxulfv encounter procedureLisa Gus Pappas FERRY TERMINAL SUPERVISOR-C-[facility] Main [place] Work Phone: Start: 12-21-2024 End: 34-64-3590swwldjwwihQgcs J Kayliehholz FERRY TERMINAL SUPERVISOR-C Work Phone: -[facility] CampusStart: 11-29-2024 End: 57-45-3413iejsivflorOhjl J Aichholz FERRY TERMINAL SUPERVISOR-C Work Phone: [facility] Work Phone: Start: 11-29-2024 End: 67-51-4939Cxhirds encounter procedureLisa Gus Pappas FERRY TERMINAL SUPERVISOR-C-[facility] Work Phone: Start: 10-14-2024 End: 58-62-2679Zlzxiuemy Result EncounterLisa Mian FERRY TERMINAL SUPERVISOR Work Phone: noms External Department UnsolicitedStart: 10-14-2024 End: 81-64-2214Hdqxquzkq Result EncounterLisa Mian FERRY TERMINAL SUPERVISOR Work Phone: [facility] External Department UnsolicitedStart: 09-27-2024 End: 29-10-9538Gsysafkh preventive med est patient 40-64yrsBertha Pappas FERRY TERMINAL SUPERVISOR Work Phone: [facility] CWM FMComment on above:Encounter for adult wellness visit (Primary Dx); Tobacco dependence; Colon cancer screening; Cervical spondylosisStart: 09-27-2024 End: 17-00-8256zkcigdelsrZQJB RIGOot AvailableStart: 09-27-2024 End: 69-33-0849Fetrzo flowsheetLisa Mian FERRY TERMINAL SUPERVISOR Work Phone: [facility]WM FMStart: 09-27-2024 End: 99-41-3330Lyycgq flowsheetBertha Pappas FERRY TERMINAL SUPERVISOR Work Phone: [facility] CWM FMStart: 09-27-2024 End: 77-79-6574Uahzrhm encounter statusLisa Mian FERRY TERMINAL SUPERVISOR Work Phone: noms HealthcareStart: 09-05-2024 End: 37-87-8299Opuxwd OnlyLisa Mian FERRY TERMINAL SUPERVISOR Work Phone: [facility] CWM FMComment on above:Cervical spondylosis (Primary Dx)Start: 08-29-2024 End: 97-98-0777VkmnziSdjd Mian FERRY TERMINAL SUPERVISOR Work Phone: [facility] CWM FMComment on above:Cervical spondylosisStart: 08-03-2024 End: 45-06-2117Ybxnoaxul Result EncounterLisa Mian FERRY TERMINAL SUPERVISOR Work Phone: n[facility] External Department UnsolicitedStart: 08-03-2024 End: 02-66-9388Ubdppbxco Result EncounterLisa Jaseholz FERRY TERMINAL SUPERVISOR Work Phone: n[facility] External Department UnsolicitedStart: 08-02-2024 End: 54-15-7468Wcoqoo outpatient visit 15 minutesLisa Kayliehholz FERRY TERMINAL SUPERVISOR Work Phone: [facility] CWM FMComment on above:Cervical spondylosis (Primary Dx); Tobacco dependenceStart: 08-02-2024 End: 43-68-9344kiboqlsvlgFMPV AICHHOLZNot AvailableStart: 08-02-2024 End: 47-05-1721Zigmax flowsheetLisa Aichholz FERRY TERMINAL SUPERVISOR Work Phone: [facility] CWM FMStart: 08-02-2024 End: 31-73-5248Fflvra flowsheetLisa Aichholz FERRY TERMINAL SUPERVISOR Work Phone: [facility] CWM FMStart: 06-23-2022 End: 15-56-4159vnnekuimteWQAYBF SKIEUniversity Covenant Health Plainviewtart: 05-05-2022 End: 57-30-4148sbqspejvquIK MIGUEL ANGEL A NADERERFacility:G1Lpuii: 10-21-2021 End: 74-08-6510xgqmwivmwvTW MIGUEL ANGEL A NADERERFacility:H1 Procedures DateProcedureProcedure DetailPerforming ClinicianStart: 01-39-9978VG pre/post mri xrayLisa Kayliehholz FERRY TERMINAL SUPERVISOR-C Work Phone: Start: 94-91-8699UWP of cervical spine without contrastLisa Aichholz FERRY TERMINAL SUPERVISOR-C Work Phone: Start: 96-39-3642RXF CBC WITH AUTO DIFFLisa Aichholz FERRY TERMINAL SUPERVISOR Work Phone: Start: 64-45-1598JA CERVICAL SPINE 2-3VLisa Aichholz FERRY TERMINAL SUPERVISOR Work Phone: Plan of Treatment DateCare ActivityDetailAuthorStart: 11-29-2024 End: 68-37-3340Jagjhyu encounter zmczxobdo56/01/2025 3:40 PM EDT Office Visit [facility] [address] [place] [address] Bertha Pappas, FERRY TERMINAL SUPERVISOR [address] [place] [address] [facility] FMStart: 52-70-2552Lpuqhltnw vaccinationNOMS HealthcareStart: 09-27-2024 End: 09-08-0313Smmslgt encounter fwuqkpmzy00/30/2025 5:00 PM EDT Office Visit [facility] [address] [place] [phone] Bertha Pappas, FERRY TERMINAL SUPERVISOR [address] [place] [address] [facility] FMStart: 09-27-2024 End: 31-83-1019ZTI W Auto Differential panel - BloodCBC and differential Lab Routine Encounter for adult wellness visit Expected: 09/27/2024 (Approximate), Expires: 09/27/2025[facility] Work Phone: Comment on above:Expected: 09/27/2024 (Approximate), Expires: 09/27/2025Start: 09-27-2024 End: 84-56-3696Oxwkbkyoliabt metabolic 2000 panel - Serum or PlasmaComprehensive metabolic panel Lab Routine Encounter for adult wellness visit Expected: 09/27/2024 (Approximate), Expires: 09/27/2025[facility] HealthcareComment on above: Expected: 09/27/2024 (Approximate), Expires: 09/27/2025Start: 09-27-2024 End: 99-88-2798Wkdlo 1996 panel - Serum or PlasmaLipid panel Lab Routine Encounter for adult wellness visit Expected: 09/27/2024 (Approximate), Expires: 09/27/2025[facility] HealthcareComment on above:Expected: 09/27/2024 (Approximate), Expires: 09/27/2025Start: 09-27-2024 End: 54-46-5726Wmhlsgduljj colorectal cancer DNA and occult blood screening [Presence] in StoolCologuard colon cancer screening Lab Routine Colon cancer screening Expected: 09/27/2024 (Approximate), Expires: 09/27/2025[facility] Comment on above:Expected: 09/27/2024 (Approximate), Expires: 09/27/2025Start: 09-27-2024 End: 51-45-1268Arysejkwvhf [Units/volume] in Serum or PlasmaTSH Lab Routine Encounter for adult wellness visit Expected: 09/27/2024 (Approximate), Expires: 09/27/2025[facility] HealthcareComment on above:Expected: 09/27/2024 (Approximate), Expires: 09/27/2025Start: 09-27-2024 End: 30-84-1929Nremgjqcri complete panel - UrineUrinalysis with reflex microscopic (clean catch) Lab Routine Encounter for adult wellness visit Expe cted: 09/27/2024 (Approximate), Expires: 09/27/2025[facility] HealthcareComment on above:Expected: 09/27/2024 (Approximate), Expires: 09/27/2025Start: 08-02-2024 End: 86-08-9012Jexjrnc encounter zoulthtff45/04/2025 3:20 PM EDT Office Visit [facility] [address] [place] [phone] Bertha Pappas NP [address] [place] [phone] ArrivedNOJIM [facility]ALIAFERR[facility] FMComment on above:ArrivedStart: 08-02-2024 End: 36-64-3507LG Cervical spine 2 or 3 ViewsXR cervical spine 2 or 3 views Imaging Routine Cervical spondylosis Expected: 08/02/2024, Expires: 08/02/2025 [facility] Work Phone: Comment on above:Expected: 08/02/2024, Expires: 08/02/2025Start: 59-38-9403Xzulojdgm for malignant neoplasm of colonNOME Healthcare Immunizations Immunization DateImmunizationNotesCare GkuqhhujOdketzeq31-06-9449qxfxzfbzr virus vaccine, unspecified formulationBertha Pappas NP Work Phone: [facility] Payers DatePayer CategoryPayerPolicy [id number] Health InsuranceUNITED HEALTHCARE [id number] 2.0.1.134373.3.57[id number] 2.0.1.252737.3.57[id number] 2.0.1.174202.3.57[id number] 2.0.1.811119.3.579.2.714342-07-8664Zvlqrko Health [id number] Health [id number] [id number] 2.0.1.167559.3.579.2.531 Social History DateTypeDetailFacilityStart: 29-04-0870Dfkvrts smoking status NHISSmokes tobacco dailyNOMS HealthcareStart: 29-50-1593Hqvtjon of tobacco useCigarette SmokerSAN JUAN [facility]OSPITAL HealthcareStart: 01-05-2023 End: 69-24-9700Gnxsyidcdd smoked current (pack per day) - Tdoeicnl2VEUZ HealthcareStart: 47-86-3161Tdldltt use and exposureSmokeless tobacco non-user [facility] HealthcareStart: 02-23-2023 End: 93-93-0376Etbixkgnj beverage intakeCurrent drinker of alcohol (finding)[facility] HealthcareStart: 02-23-2023 End: 72-50-5326Zaxiyqe use panelSAN JUAN HOSPITAL HealthcareStart: 57-73-9822Nat assigned at [facility]Not on [facility] CenterTomountain vista [facility] centero smoking status NHISUnknown if ever smoked [facility] Work Phone: SexMale (finding)[facility] Start: [id number] Assigned At [facility] Clinical Notes 06-23-2022 to 11-29-2024 Note Date & [id number] Evaluation note* Diagnosis Onset Date Resolution Status Admit Date Cervical spondylosis acuteOctober 2024 3:22pmNicotine dependence, cigarettes, uncomplicatedacute November 29, 2024 3:22pm [facility] Work Phone: 1(405) 977-413110-01-2025 Evaluation note* Diagnosis Onset Date Resolution Status Admit Date Cervical spondylosis acuteOctober 2024 3:22pmNicotine dependence, cigarettes, uncomplicatedacute November 29, 2024 3:22pmCervical spondylosisacuteNovember 2024 3:32pm Nicotine dependence, cigarettes, uncomplicatedacuteNov2024 3:32pm [facility] Work Phone: 1(267) 776-336907-30-2025 History of Present illness Narrative* Bertha Pappas [...] of the risks of continued smoking: stroke, AL, all forms of cancer, lung disease, and [...] of the risks of continued smoking: stroke, AL, all forms of cancer, lung disease, and . Options for quitting smoking include: cold turkey, hypnosis, acupuncture, nicotine replacement meds(gum, lozenges, and patches), Buproprion, and Varenicline. At this time pt is encouraged to evaluate their goals for wanting to quit smoking, and reach out toprovider when ready to start this process documented in this encounterSaint [facility] [id number] Instructions* Patient Instructions* Bertha Pappas NP - 09/27/2024 5:00 PM EDT Recommend eye exam yearly Recommend dental exams twice a year Balance work/leisure activities Exercises is recommended most days of the week (appropriate as chronic conditions allow) Follow up yearly and prn documented in this encounterSaint Joseph Hospital of [id number] History of Present illness Narrative* Bertha Pappas NP - 08/02/2024 3:44 PM EDTAssociated Problem(s): Cervical spondylosis NSAID, MR, stretching exercises Ice Call office in 2-3 weeks if not better * Bertha Pappas NP - 08/02/2024 3:44 PM EDTAssociated Problem(s): Tobacco dependence The patient has been advised of the risks of continued smoking: stroke, AL, all forms of cancer, lung disease, and [...] of the risks of continued smoking: stroke, AL, all forms of cancer, lung disease, and . Options for quitting smoking include: cold turkey, hypnosis, acupuncture, nicotine replacement meds(gum, lozenges, and patches), Buproprion, and Varenicline. At this time pt is encouraged to evaluate their goals for wanting to quit smoking, and reach out toprovider when ready to start this process documented in this [facility]06-04-2025 Instructions* Patient Instructions* Bertha Pappas NP - 08/02/2024 3:20 PM EDT Try Naproxen (anti inflammatory) twice a day with food Tizanidine (muscle relaxer) at bedtime for sleep-may make drowsy Stretching exercises If not better in 3 weeks call off and we will order PT Check xray documented in this encounterSaint Joseph Hospital of [id number] NoteOrthopedic Surgery Subjective New Patient of the [...] will call if he is having worsening problems.[facility] Diagnosis Cervical spondylosis- Primary Cervical spondylosis without myelopathy Tobacco dependence Tobacco use disorder documented in this encounter [facility]* Diagnosis Cervical spondylosis- Primary Cervical [...] dependence, cigarettes, uncomplicatedacute November 29, 2024 3:22pm [facility] Work Phone: Reason for referral (narrative)No reason for referral information availableTrihealth Work Phone: Summary Purpose Family History No [...] and content) DATE CREATED AUTHOR 05/09/2022 [facility] DATE CREATED AUTHOR AUTHOR'S ORGANIZ ATION 06/24/2022 [facility] DATE CREATED AUTHOR AUTHOR'S ORGANIZ ATION 09/30/2024 [facility] DATE CREATED AUTHOR AUTHOR'S ORGANIZ ATION 12/23/2024 [facility] Care Teams (unrecognized sec tion and content) Team MemberRelationshipSpecialtyStart DateEnd Date Miguel Angel Mccall MD [address] [place] [address] PCP - GeneralFamily Medicine04/21/23Team MemberRelationshipSpecialtyStart DateEnd Date Miguel Angel Mccall MD [address] [place] [address] PCP - GeneralFamily Medicine04/21/23Team MemberRelationshipSpecialtyStart DateEnd Date Miguel Angel Mccall MD [address] [place] [address] PCP - Generalmily Medicine04/21/23Team MemberRelationshipSpecialtyStart DateEnd Date Miguel Angel Mccall MD [address] [place] [address] PCP - Generalmily Medicine04/21/23Team MemberRelationshipSpecialtyStart DateEnd Date Miguel Angel Mccall MD [address] [place] [address] PCP - Generalmily Medicine04/21/23Team MemberRelationshipSpecialtyStart DateEnd Date Miguel Angel Mccall MD [address] [place] [address] PCP - GeneralFamily Medicine04/21/23Team MemberRelationshipSpecialtyStart DateEnd Date Miguel Angel Mccall MD [address] [place] [address] PCP - [facility]04/21/23 Team Status: Active Member Role Status Dates Bertha Pappas [employer]-C Primary Care Provider Active Team Status: Inactive Member Role Status Dates Bertha Pappas , [employer]-C Primary Care Provider Active Start: November 29, 2024 End: November 29, 2024Bertha Pappas , [employer] SUPERVISOR-CAttending ProviderActiveStart: November 29, 2024 End: November 29, 2024 Team Status: Active Member Role/Relationship Status Dates Bertha Pappas [employer]PER[employer]C Primary Care Provider Active Team Status: Inactive Member Role/Relationship Status Dates Bertha Pappas [employer]PER[employer]-C Primary Care Provider Active Start: November 29, 2024 End: November 29, 2024Bertha Pappas , [employer] SUPERVISOR-CAttending ProviderActiveStart: November 29, 2024 End: November 29, 2024 Team Status: Inactive Member Role/Relationship Status Dates Bertha Pappas [employer]PER[employer]-C Primary Care Provider Active Start: December 21, 2024 End: December 21, 2024Bertha Pappas , [employer] SUPERVISOR-CAttending ProviderActiveStart: December 21, 2024 End: December 21, 2024 Team Status: Inactive Member Role/Relationship Status Dates Bertha Pappas , [employer]PER[employer]-C Primary Care Provider Active Start: January 02, 2025 End: January 02, 2025Bertha Pappas , [employer] SUPERVISOR-CAttending ProviderActiveStart: January 02, 2025 End: January 02, [...] BE BASED ON THE PRIMARY CLINICAL RECORDS. [facility] [employer] [facility]. provides no warranty or guarantee of the accuracy or completeness of information in this document.
--- NOTE | 2025-02-28 10:00 | PM.CN ---
Consult Note: HPI Data of Consult Patient: known to practice within the last 3 years Consult date: 02/08/25 Requesting Physician: Laura Noyola NP Primary Care Provider: Miguel Angel Hernandez MD Consult Narrative Reason for consult: chronic neck pain Narrative: Franc Servin a 44 year old male presents for evaluation and management of chronic neck pain > 6 months secondary to ADLs and work, without injury. 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 Pt recently completed > 6 weeks of PT for neck pain without benefit. Pt was evaluated by DIVINE Grier who recommends pt undergo C5-7 MBBs in consideration of RFA for his chronic neck pain. Cervical xray with results below, cervical MRI available in paper chart. Patient reports pain today 2/10 aching increasing at times to 4/10 with twisting, pulling, lifting, bending, looking up, and activity. pt notes improvement with looking down. denies heaviness/weakness to BUE. on 02-19-25 he underwent bilateral C5,6 C6,7 MBB #1 with 100% pain relief for 3 days, preop pain up to 10/10 post op pain 0/10. cc:: CC: Laura Noyola NP Review of Systems ROS Ears, nose, mouth, and throat Reports: neck pain PFSH PFSH Medical History Neck pain ?M54.2 - Cervicalgia (ICD-10) Current smoker ?F17.200 - Nicotine dependence, unspecified, uncomplicated (ICD-10) Meds Home Medications and Allergies Home Medications ?Medication ?Instructions ?Recorded ?Confirmed ?Type valacyclovir 500 mg PO DAILY 02/08/25 02/19/25 History Allergies Allergy/AdvReac Type Severity Reaction Status Date / Time No Known Drug Allergies Allergy Verified 02/19/25 09:35 Exam Constitutional Documenting provider has reviewed patient's vital signs: yes Common normals: no apparent distress, oriented x3 and alert General appearance: cooperative HENMT Common normals: normocephalic, hearing grossly normal bilaterally and moist oral mucous membranes Head and scalp: normocephalic Eye Common normals: PERRL Pupil: PERRL Neck & C-Spine Common normals: full ROM General: normal visual inspection Cervical spine: loss of normal cervical lordosis; no pain with cervical ROM and no cervical spine tenderness Other: sensation intact BUE negative spurlings Chest Common normals: inspection of chest normal Respiratory Common normals: normal respiratory effort, no retractions and no use of accessory muscles Neuro Common normals: oriented x3 Sensorium/orientation: alert Psych Common normals: mental status grossly normal, thought process normal, cooperative, affect normal, speech normal and activity/motor behavior normal Speech: normal speech Thought process: normal thought process Results Imaging cervical xray: Attestation: I have reviewed the pertinent imaging results. Radiologist's impression: POSTOPERATIVE CHANGES: None BONY ALIGNMENT: Straightening HYPERMOBILITY::No bending imaging. LISTHESIS:None FRACTURE: None DISC DEGENERATION: Moderate C5-6 disc space narrowing with endplate spurring. Mild progression FACETS: Unremarkable FORAMEN: Unremarkable. DENS: Intact CRANIOCERVICAL JUNCTION: Unremarkable SOFT TISSUES: Unremarkable Additional Findings Additional findings: If on a controlled substance or opioids, I have checked an [place] report on this patient and there are no aberrancies noted in the prescribing history.??If on a controlled substance or opioid a drug screen was completed and reviewed within the last year, and if there has not been a drug screen completed we ordered one today to monitor higher risk, state monitored pain medication use. As part of providing excellent, safe, comprehensive care, the following was completed at our patient's visit: 1. A medication reconciliation and review to ensure accurate knowledge of current/active medications, including asking our patients to inform us about any tkef-mke-osccoro medications or herbal remedies/nutritional supplements/alternative remedies. 2. A review to specifically ensure our patients have had annual screening for screening for depression, screening for tobacco use, and screening for unhealthy alcohol use. For concerning screenings had a discussion with the patient, provided patient education, and recommended follow-up with primary care provider when appropriate. If patient noted with a risk of falling, they received education on strength, gait, and balance training to prevent future risk of falling. Portions of this note may have been carried over from the previous visit and updated as appropriate. Please note this office utilizes paper charting in addition to the electronic medical record. A list of current medications, vitals, and PMH is available there as the clinical staff outside of myself do not have access to [employer] charting during the clinic day operations. As part of providing quality comprehensive care the current medications, vitals, and PMH were reviewed in the paper chart. Assessment and Plan Assessment and Plan (1) Cervical spondylosis: (2) Degenerative disc disease, cervical: Plan The patient has had over 3 months of moderate to severe neck pain with functional impairment and inadequate response to conservative care including NSAIDS (unless there are contraindication such as concurrent blood thinners), multiple oral or topical pain medications, and home exercise program/physical therapy.? Patient has completed >6 weeks of guided home exercise program and/or formal physical therapy program without relief of their symptoms.? I have reviewed the imaging of the cervical spine and no red flags were identified The Oswestry Disability Index was completed, and the patient scored a 10%.? defer bilateral C5-6 C6-7 MBB #2 under fluoroscopy for facet mediated pain as pain well controlled. pt can call when pain worsens continue tylenol and naproxen prn otc prn continue HEP as tolerated f/u PRN
== END 2025-02-28 09:37 | disposition home or self-care (01) ==
LOC: PM 09:37
PROVIDERS: PCP Family Medicine; Visit Provider Nurse Practitioner
DX: M47.812 Spondylosis without myelopathy or radiculopathy, cervical region (principal); M50.30 Other cervical disc degeneration, unspecified cervical region
CPT/HCPCS: G0463